=== PATIENT | female | born 1985 | race Caucasian/White ===

== ENCOUNTER 2018-02-11 10:49 | Emergency (ER) | payer OTHER, MEDICAID, SELFPAY ==
[2018-02-11 11:08] VITALS: BP 147/80; PULSE 100; RESP 12; TEMP 36.2; O2SAT 100
--- NOTE | 2018-02-11 11:09 | ED_ITS ---
HPI - Recheck/Abnormal Lab/Rx General Chief Complaint: Recheck/Abnormal Lab/Rx Stated Complaint: NEEDS MEDS Time Seen by Provider: 02/11/18 11:01 Source: patient Mode of arrival: ambulatory Limitations: no limitations History of Present Illness HPI narrative: Patient is a 32-year-old female requesting refill prescriptions of her pain medications. She has appointment with a new pain clinic in February but has run out. She was kicked out of physician practices due to not providing a urine sample. she is currently out of pain medication but has no increased or worsening pain. She has a history of rheumatoid and fibromyalgia. MD complaint: medication refill request Related Data Previous Rx's Medication Instructions Recorded fluconazole [Diflucan] 100 mg PO QDAY #1 tab 02/28/17 cyclobenzaprine 10 mg PO TIDP PRN #90 tab 04/26/17 [condoms, lubricated] 1 / UNK QDAY PRN #30 packet 05/23/17 norethin-e.estradiol triphasic 1 tab PO SEE INSTRUCTIONS #1 pac 07/08/17 [Ortho-Novum (28)] hydrochlorothiazide 25 mg PO QDAY #90 tab 08/02/17 potassium chloride 8 meq PO Q DAY #30 tab 10/28/17 carisoprodol 350 mg tablet 350 mg PO TID PRN #90 tab 01/07/18 oxycodone-acetaminophen 10 mg-325 1 tab PO Q4HP PRN #190 tab 01/13/18 mg tablet diazepam 10 mg tablet 10 mg PO TIDP PRN #90 tab 01/22/18 temazepam 30 mg capsule 60 mg PO HSP PRN #60 tab 01/22/18 Allergies Allergy/AdvReac Type Severity Reaction Status Date / Time codeine [CODEINE] Allergy Unknown Unverified 11/06/17 12:06 Sulfa (Sulfonamide Allergy Unknown Unverified 11/06/17 12:06 Antibiotics) [SULFA (SULFONAMIDE ANTIBIOTICS)] Review of Systems Review of Systems GENERAL: Denies chills,fever HEENT: Denies throat pain RESPIRATORY: Denies dyspnea, cough, wheezing CARDIOVASCULAR: Denies chest pain, palpitations GASTROINTESTINAL: Denies nausea, vomiting MUSCULOSKELETAL: Denies extremity pain, injury SKIN: No rash, no laceration, no pruritus NEUROLOGIC: Denies weakness, dizziness, headache, numbness 8 point review of systems is negative except for those stated above and HPI [facility] Medical History Fibromyalgia (Acute) Rheumatoid arthritis (Acute) Ankle pain (Inactive) Anxiety (Inactive) Depression (Inactive) Fibromyalgia (Inactive) Foot pain (Inactive) Migraine (Inactive) Osteoporosis (Inactive) Ovarian cyst (Inactive) PTSD (post-traumatic stress disorder) (Inactive) Painful menstrual periods (Inactive) Rheumatoid arthritis (Inactive) Scoliosis (Inactive) Shoulder pain (Inactive) Exam Initial Vital Signs Initial Vital Signs: Vital Signs Temperature 97.2 F L 02/11/18 11:08 Pulse Rate 100 H 02/11/18 11:08 Respiratory Rate 12 02/11/18 11:08 Blood Pressure 147/80 H 02/11/18 11:08 Pulse Oximetry 100 02/11/18 11:08 GENERAL: Well-appearing, well-nourished and in no acute distress. CARDIOVASCULAR: peripheral pulses in tact, cap refill <2 sec RESPIRATORY: No respiratory distress, speaks in full sentences without difficulty EXTREMITIES: Normal range of motion, no clubbing or edema. Neurovascularly intact NEUROLOGICAL: Cranial nerves II through XII grossly intact. Normal gait and speech. SKIN: Warm, dry, no petechiae, no rashes or lesions. Course Vital Signs - 8 hr 02/11/18 11:08 Temperature 97.2 F L Pulse Rate 100 H Respiratory Rate 12 Blood Pressure 147/80 H Pulse Oximetry 100 MDM - Recheck/Abnormal Lab/Rx MDM Narrative Medical decision making narrative: large amount of time explained the patient that I cannot refill her chronic pain medications in the emergency department. Unfortunately she may just have to wait until her pain clinic appointment. She is nontoxic she does not appear in any severe pain. Patient was ambulatory prior to discharge instructions. Discharge Plan Departure Patient Disposition: Home, Self-Care Clinical Impression: Chronic pain syndrome Discharge Date/Time: 02/11/18 11:39 Interventions: ED Discharge Assessment Last Done: 02/11/18 11:40 Instructions: DI for Chronic Pain -- Adult Prescriptions: No Action fluconazole [Diflucan] 100 MG tablet 100 mg PO QDAY Qty: 1 RF: 1 cyclobenzaprine 10 MG tablet 10 mg PO TIDP PRNQty: 90 RF: 0 [condoms, lubricated] 1 / UNK QDAY PRNQty: 30 RF: 11 norethin-e.estradiol triphasic [Ortho-Novum (28)] 1 EACH tablet 1 tab PO SEE INSTRUCTIONS Qty: 1 RF: 11 hydrochlorothiazide 25 MG tablet 25 mg PO QDAY Qty: 90 RF: 0 potassium chloride 8 MEQ tablet extended release 8 meq PO Q DAY Qty: 30 RF: 11 carisoprodol 350 mg tablet 350 mg PO TID PRN (Reason: muscle spasm) Qty: 90 RF: 0 oxycodone-acetaminophen [Endocet] 10-325 mg tablet 1 tab PO Q4HP PRN (Reason: pain) Qty: 190 RF: 0 diazepam [Valium] 10 mg tablet 10 mg PO TIDP PRN (Reason: anxiety) Qty: 90 RF: 0 temazepam 30 mg capsule 60 mg PO HSP PRN (Reason: insomnia) Qty: 60 RF: 0 Stand Alone Forms: Against Medical Advice
== END 2018-02-11 11:39 | disposition home or self-care (01) ==
PROVIDERS: Emergency Provider Emergency Medicine; PCP Family Medicine Sports Medicine
DX: G89.4 Chronic pain syndrome (principal)
CPT/HCPCS: 99282

== ENCOUNTER → 2021-04-07 16:19 | Outpatient (CLI) | payer OTHER, MEDICAID, SELFPAY | PROVIDERS: PCP Family Medicine Sports Medicine; Visit Provider Nurse Practitioner | DX: N39.0 Urinary tract infection, site not specified (principal) | CPT/HCPCS: 81002; 87077; 87086; 87186 ==

== ENCOUNTER 2022-04-05 14:54 | Emergency (ER) | payer OTHER, MEDICAID, SELFPAY ==
[2022-04-05 15:14] VITALS: BP 175/116; PULSE 111; RESP 18; TEMP 36.6; O2SAT 99; BMI 31.9
[2022-04-05] MEDS: LIDOCAINE PATCH 1 EACH ADH..PATCH TOP (17:21)
[2022-04-05] MEDS: diazePAM 5 MG TABLET PO (17:21)
[2022-04-05] MEDS: predniSONE 20 MG TABLET 60 MG PO (17:21)
--- NOTE | 2022-04-05 19:28 | ED_ITS ---
HPI - Extremity Problem <Karina Hernandez, [facility] - Last Filed: 04/05/22 19:55> General Chief complaint: Extremity Problem,Nontraumatic Stated complaint: PAIN TO THE LT. SIDE OF BODY Time Seen by Provider: 04/05/22 16:56 Source: patient Mode of arrival: Wheelchair History of Present Illness HPI Narrative: This is a 37-year-old female with history of anxiety, depression, fibromyalgia, chronic pain syndrome, opiate dependence, posttraumatic stress disorder, bilateral low back pain without sciatica and idiopathic scoliosis of lumbar region who presents to the emergency with complaint of symptoms on the left side of her body which do not seem normal to her. Patient states that when she sleeps on her left arm it falls asleep and when she moves off of it it is normal again. Patient states that she is had occasional shooting pain from her left buttock down the lateral aspect of her thigh which stops at the knee and endorses a history of degenerative disc disease and L2 and L4 herniation. She has been taking ibuprofen, states she took 800 mg prior to arrival and it has not helped too much. She is concerned about recurrence of this nerve pain, denies any incontinence, denies any fever, denies any weakness or difficulty walking. He was concerned about this pain because she was not sure why it did not go all the way down her leg. Related Data Previous Rx's Medication Instructions Recorded fluconazole 100 mg tablet 100 mg PO QDAY #1 tab 02/28/17 (Diflucan) cyclobenzaprine 10 mg tablet 10 mg PO TIDP PRN #90 tabs 04/26/17 [condoms, lubricated] 1 / UNK QDAY PRN #30 packets 05/23/17 norethindrone-e.estradiol 1 tab PO SEE INSTRUCTIONS ##1 07/08/17 triphasic 0.5 mg/0.75 mg/1 mg-35 mcg tablet (Ortho-Novum (28)) hydrochlorothiazide 25 mg tablet 25 mg PO QDAY #90 tabs 08/02/17 potassium chloride 8 mEq 8 meq PO Q DAY #30 tabs 10/28/17 tablet,extended release carisoprodol 350 mg tablet 350 mg PO TID PRN muscle spasm #90 01/07/18 tabs oxycodone-acetaminophen 10 mg-325 1 tab PO Q4HP PRN pain #190 tabs 01/13/18 mg tablet (Endocet) diazepam 10 mg tablet (Valium) 10 mg PO TIDP PRN anxiety #90 tabs 01/22/18 temazepam 30 mg capsule 60 mg PO HSP PRN insomnia #60 tabs 01/22/18 phenazopyridine 100 mg tablet 200 mg PO TID PRN pain 6 doses #6 04/07/21 (Pyridium) tabs lidocaine 5 % topical patch 1 patch topical DAILY PRN pain #15 04/05/22 (Lidoderm) ea lidocaine 5 % topical patch 1 patch topical DAILY PRN pain #15 04/05/22 (Lidoderm) ea methocarbamol 500 mg tablet 500 mg PO TID PRN muscle spasm #20 04/05/22 tabs methocarbamol 750 mg tablet 750 mg PO TID PRN muscle spasm #20 04/05/22 tabs prednisone 20 mg tablet 20 mg PO DAILY 4 days #8 tabs 04/05/22 prednisone 20 mg tablet 40 mg PO DAILY 4 days #8 tabs 04/05/22 Allergies Allergy/AdvReac Type Severity Reaction Status Date / Time codeine [CODEINE] Allergy Unknown Verified 04/05/22 15:19 Sulfa (Sulfonamide Allergy Unknown Verified 04/05/22 15:19 Antibiotics) [SULFA (SULFONAMIDE ANTIBIOTICS)] Review of Systems <SHANT Castro - Last Filed: 04/05/22 19:55> Review of Systems Narrative: Review of systems is negative for acute abnormalities unless otherwise noted in HPI Patient History <SHANT Castro - Last Filed: 04/05/22 19:55> Medical History Ankle pain Anxiety Depression Fibromyalgia Fibromyalgia Foot pain Migraine Osteoporosis Ovarian cyst Painful menstrual periods PTSD (post-traumatic stress disorder) Rheumatoid arthritis Rheumatoid arthritis Scoliosis Shoulder pain Social History Smoking Status: Current every day smoker Smoking Status: Current every day smoker alcohol intake frequency: a few times a month Substance Use Type: marijuana Exam <SHANT Castro - Last Filed: 04/05/22 19:55> Narrative Exam Narrative: Reviewed vitals signs and nursing notes. General: cooperative, comfortable, in no acute distress, well groomed HEENT: symmetrical facial expressions, moist mucous membranes Cardiovascular: regular rate and rhythm, no peripheral edema, warm extremities Respiratory: normal effort, able to speak in complete sentences, without wheezing, stridor, or abnormal breath sounds. No retractions or tachypnea. GI: abdomen soft, nontender to palpation, nondistended, without masses, rebound tenderness or exquisite tenderness with exam. MSK: moves all extremities, neurovascularly intact, no weakness, normal tone, leg lift elicit symptoms of pain in her lumbar spine, ambulatory with steady gait, no weakness when compared with right side, neurovascularly intact without any sensation changes at this time. Skin: brisk capillary refill, without pallor or erythema Neuro: normal speech and cognition, A&O x3, ambulatory, clear speech Psych: mental status is grossly normal, congruent mood, normal affect, pleasant and cooperative Initial Vital Signs Initial Vital Signs: Vital Signs Temperature 97.9 F 04/05/22 15:14 Pulse Rate 111 H 04/05/22 15:14 Respiratory Rate 18 04/05/22 15:14 Blood Pressure 175/116 H 04/05/22 15:14 Pulse Oximetry 99 04/05/22 15:14 Oxygen Delivery Method 04/05/22 15:14 <Julio Cesar Mejia MD - Last Filed: 04/06/22 07:08> Initial Vital Signs Initial Vital Signs: Vital Signs Temperature 97.9 F 04/05/22 15:14 Pulse Rate 111 H 04/05/22 15:14 Respiratory Rate 18 04/05/22 15:14 Blood Pressure 175/116 H 04/05/22 15:14 Pulse Oximetry 99 04/05/22 15:14 Oxygen Delivery Method 04/05/22 15:14 Course <SHANT Castro - Last Filed: 04/05/22 19:55> Orders Ordered: Discontinued Medications Diazepam (Diazepam 5 Mg Tablet) 5 mg PO NOW ONE Stop: 04/05/22 17:16 Last Admin: 04/05/22 17:21 Dose: 5 mg Documented By: VISH Diazepam (Diazepam 5 Mg Tablet) 5 mg PO NOW ONE Stop: 04/05/22 17:18 Last Admin: 04/05/22 17:21 Dose: Not Given Documented By: AMU Lidocaine (Lidocaine Patch 1 Each Adh..Patch) 1 each TOP NOW ONE Stop: 04/05/22 17:16 Last Admin: 04/05/22 17:21 Dose: 1 each Documented By: VISH Prednisone (Prednisone 20 Mg Tablet) 60 mg PO NOW ONE Stop: 04/05/22 17:16 Last Admin: 04/05/22 17:21 Dose: 60 mg Documented By: VISH Vital Signs Vital signs: Vital Signs - 8 hr 04/05/22 15:14 Temperature 97.9 F Pulse Rate 111 H Respiratory Rate 18 Blood Pressure 175/116 H Pulse Oximetry 99 Oxygen Delivery Method Room Air <Julio Cesar Mejia MD - Last Filed: 04/06/22 07:08> Orders Ordered: Discontinued Medications Diazepam (Diazepam 5 Mg Tablet) 5 mg PO NOW ONE Stop: 04/05/22 17:16 Last Admin: 04/05/22 17:21 Dose: 5 mg Documented By: VISH Diazepam (Diazepam 5 Mg Tablet) 5 mg PO NOW ONE Stop: 04/05/22 17:18 Last Admin: 04/05/22 17:21 Dose: Not Given Documented By: VISH Lidocaine (Lidocaine Patch 1 Each Adh..Patch) 1 each TOP NOW ONE Stop: 04/05/22 17:16 Last Admin: 04/05/22 17:21 Dose: 1 each Documented By: VISH Prednisone (Prednisone 20 Mg Tablet) 60 mg PO NOW ONE Stop: 04/05/22 17:16 Last Admin: 04/05/22 17:21 Dose: 60 mg Documented By: VISH Vital Signs Vital signs: Vital Signs - 8 hr 04/05/22 15:14 Temperature 97.9 F Pulse Rate 111 H Respiratory Rate 18 Blood Pressure 175/116 H Pulse Oximetry 99 Oxygen Delivery Method Room Air MDM - Extremity (Nontraumatic) <SHANT Castro - Last Filed: 04/05/22 19:55> MDM Narrative Medical decision making narrative: Patient presents with history of scoliosis, degenerative disc disease, herniated desk and low back pain without sciatica who presents to the emergency department for shooting pain which came from her left buttock and went down to her left knee intermittently recently. She is without trauma, and is afebrile. Denies any injuries, states that she has been on her feet for the last few days and maybe her low back has been sore. She denies any weakness. Given history and exam, suspect likely musculoskeletal etiology, they are nontoxic appearing with no overt risk factors for epidural hematoma or abscess. No overt evidence of critical cord compression and has a nonfocal near exam. Neurovascularly intact distally, no evidence of infection, peritoneal signs, hypertensive crisis, or abdominal pain with low suspicion for AAA. No weakness, incontinence, neurovascular or sensation changes, no concerning findings for caudal equina syndrome, lumbar fracture, without paresthesia, neuropathic pain, meningeal signs and fever. This could be a herniated disk, paraspinal or other muscle strain, ligamental injury, arthritic, nephrolithiasis/pyelonephritis, epidural abscess, chronic pain, and other diagnosis? considered less likely. Discharge Plan Departure Patient Disposition: Home Clinical Impression: Acute low back pain with sciatica Qualifiers: Back pain laterality: left Sciatica laterality: sciatica of left side Qualified Code(s): M54.42 - Lumbago with sciatica, left side Instructions: DI for Back Pain With Sciatica, DI for Muscle Spasm Activity Restrictions/Additional Instructions: *You have been diagnosed with sciatica coming from your previous low back injury with your degenerative discs. Please take ibuprofen 800 mg every 8 hours with food and water, you may also take Tylenol 650 mg every 6 hours for pain. Please use the prednisone prescription for the next 5 days which will help reduce inflammation of the nerve root, use muscle relaxers every 8 hours as needed for muscle spasm, lidocaine patches as you need them over the left side of your low back and try to establish care with a primary care provider. I hope that you start feeling better soon, thank you for trusting us with your care. If you develop any weakness of your legs, incontinence, or any dangerous new problems, please come back to the emergency department for evaluation. *What to do: *Please continue to take your regular medications as directed. [x ] New medication prescriptions sent to your pharmacy: [[facility]am[facility]incortes ] [ ] New medication written as a paper prescription [ ] No new medications given *Please follow up with your primary care provider in 2-3 days, call for an appointment. Let them know you were seen in the Emergency Department and that we asked that you be seen for follow-up. We will electronically transmit a record of today's note if your PCP is in our system *If you do not have a primary care provider please contact [phone] to establish care with one of the [facility] primary care providers. *Return to Emergency Department if you should have any new, worsening, or co ncerning symptoms, such as [fever greater than 101F, chills, worsening pain, persistent vomiting or other bothersome symptoms]. Prescriptions: New methocarbamol 500 mg tablet 500 mg PO TID PRN (Reason: muscle spasm) Qty: 20 0RF lidocaine [Lidoderm] 5 % adhesive patch,medicated 1 patch topical DAILY PRN (Reason: pain) Qty: 15 0RF Rx Instructions: leave on most painful area for up to 12 hrs prednisone 20 mg tablet 20 mg PO DAILY 4 Days Qty: 8 0RF prednisone 20 mg tablet 40 mg PO DAILY 4 Days Qty: 8 0RF Rx Instructions: Start tomorrow, take with food and water methocarbamol 750 mg tablet 750 mg PO TID PRN (Reason: muscle spasm) Qty: 20 0RF lidocaine [Lidoderm] 5 % adhesive patch,medicated 1 patch topical DAILY PRN (Reason: pain) Qty: 15 0RF Rx Instructions: leave on most painful area for up to 12 hrs Continued phenazopyridine [Pyridium] 100 mg tablet 200 mg PO TID PRN (Reason: pain) Qty: 6 0RF fluconazole [Diflucan] 100 MG tablet 100 mg PO QDAY Qty: 1 1RF cyclobenzaprine 10 MG tablet 10 mg PO TIDP PRNQty: 90 0RF [condoms, lubricated] 1 / UNK QDAY PRNQty: 30 11RF norethin-e.estradiol triphasic [Ortho-Novum (28)] 1 EACH tablet 1 tab PO SEE INSTRUCTIONS Qty: 1 11RF hydrochlorothiazide 25 MG tablet 25 mg PO QDAY Qty: 90 0RF potassium chloride 8 MEQ tablet extended release 8 meq PO Q DAY Qty: 30 11RF carisoprodol 350 mg tablet 350 mg PO TID PRN (Reason: muscle spasm) Qty: 90 0RF oxycodone-acetaminophen [Endocet] 10-325 mg tablet 1 tab PO Q4HP PRN (Reason: pain) Qty: 190 0RF Rx Instructions: Take one tablet by mouth up to every four hours as needed for pain. EXEMPT diazepam [Valium] 10 mg tablet 10 mg PO TIDP PRN (Reason: anxiety) Qty: 90 0RF temazepam 30 mg capsule 60 mg PO HSP PRN (Reason: insomnia) Qty: 60 0RF Visit Report Forms: Patient Portal/API <Julio Cesar Mejia MD - Last Filed: 04/06/22 07:08> Cosign ED Attending Cosignature Attestation: I was immediately available in the department for consultation. ?This documentation has been reviewed and I agree with assessment and plan. Supervised by Julio Cesar Mejia MD
== END 2022-04-05 17:44 | disposition home or self-care (01) ==
PROVIDERS: Emergency Provider Nurse Practitioner Critical Care Medicine
DX: M54.42 Lumbago with sciatica, left side (principal)
CPT/HCPCS: 99283

== ENCOUNTER → 2022-11-12 09:46 | Outpatient (CLI) | payer OTHER, MEDICAID, SELFPAY ==
--- NOTE | 2022-11-12 09:52 | DI.RAD.S_ITS ---
PROCEDURE: XR ANKLE LT MIN 3V INDICATIONS: Ankle pain TECHNIQUE: 3 views of the ankle were acquired. COMPARISON: None. FINDINGS: Bones: No fractures or dislocations. Ankle mortise is normally aligned. No suspicious bony lesions. Soft tissues: Moderate tibiotalar joint effusion. Achilles tendon appears normal. IMPRESSION: Moderate tibiotalar joint effusion. No displaced fracture. If this patient cannot bear weight, consider CT. If pain persists following conservative management, consider repeat x-rays in 10-14 days, or cross-sectional imaging. Dictated by: Pankaj Fisher M.D. on 11/12/2022 at 12:17 Approved by: Pankaj Fisher M.D. on 11/12/2022 at 12:18
--- NOTE | 2022-11-12 09:52 | DI.RAD.S_ITS ---
PROCEDURE: XR LUMBAR SPINE 2-3V INDICATIONS: Pain TECHNIQUE: 3 views of the lumbar spine were acquired. COMPARISON: None. FINDINGS: Bones: 5 [id number] vertebrae are present. Convex left scoliosis, Aguila angle of 23?. Moderate facet arthrosis L2 through S1. [id number] disc height loss at all levels. Opposing endplate sclerosis at L4-5. Soft tissues: Overlying bowel gas pattern is normal. No suspicious soft tissue calcifications. IMPRESSION: Convex left scoliosis, Aguila angle of 23?. Mild to moderate disc height loss and facet arthrosis at all levels. Dictated by: Pankaj Fisher M.D. on 11/12/2022 at 12:15 Approved by: Pankaj Fisher M.D. on 11/12/2022 at 12:17
[2022-11-12 10:43] LABS: Add Manual Diff / Slide Review NO; Basophils Absolute Auto 0 /uL (0-100); Basophils Percent Auto 0.4 % (0-2); Eosinophils Absolute Auto 200 /uL (0-450); Eosinophils Percent Auto 2.5 % (2-4); Hematocrit 40.6 % (36-46); Hemoglobin 13.9 g/dL (12.0-16.0); Lymphocytes Absolute Auto 1900 /uL (1100-4500); Lymphocytes Percent Auto 21.3 % (25-40); Mean Corpuscular HGB Conc 34.3 % (30-36); Mean Corpuscular Hemoglobin 34.8 PG (26-34); Mean Corpuscular Volume 101.5 fL (80-100); Monocytes Absolute Auto 600 /uL (0-900); Neutrophils Absolute Auto 6100 /uL (1500-7000); Neutrophils Percent Auto 68.8 % (50-75); Platelet Count 203 X10^3/uL (150-400); Red Cell Distribution Width 15.8 % (11.6-14.8); White Blood Cell Count 8.9 X10^3/uL (4.5-11.0)
[2022-11-12 10:57] LABS: Alanine Aminotransferase 27 IU/L (<35); Albumin Globulin Ratio 1.1 (1.0-2.8); Alkaline Phosphatase 65 U/L (38-126); Aspartate Aminotransferase 36 IU/L (14-36); BUN Creatinine Ratio 9.5 (6-22); Bilirubin Total 0.6 mg/dL (0.2-1.3); Blood Urea Nitrogen 7 mg/dL (7-17); Calcium 8.9 mg/dL (8.4-10.2); Carbon Dioxide 27 mmol/L (22-32); Chloride 105 mmol/L (98-107); Cholesterol 196 mg/dL (140-199); Estimated Glomerular Filt Rate > 60 mL/min (>60); Globulin 3.6 g/dL (1.7-4.1); Glucose 191 mg/dL (70-100); HDL Cholesterol 38 mg/dL (40-60); HEMOLYSIS < 15 (0-50); LDL Cholesterol Calculated 135 mg/dL (<100); Potassium 3.9 mmol/L (3.4-5.1); Sodium 140 mmol/L (137-145); Total Protein 7.6 g/dL (6.3-8.2); Triglycerides 114 mg/dL (35-150); VLDL Cholesterol Calculated 23 mg/dL (2-30)
[2022-11-12 11:30] LABS: TSH w/ Reflex to FT4 2.97 uIU/mL (0.47-4.68)
[2022-11-12 17:23] LABS: Hep C Virus Ab w/Reflex Quant NEGATIVE s/c (NEGATIVE)
== END ==
PROVIDERS: Referring Provider Nurse Practitioner Family; Visit Provider Nurse Practitioner Family
DX: E87.5 Hyperkalemia (principal); R00.0 Tachycardia, unspecified; F41.9 Anxiety disorder, unspecified; M54.50 Low back pain, unspecified; M54.31 Sciatica, right side; M54.32 Sciatica, left side; Z11.59 Encounter for screening for other viral diseases; M25.572 Pain in left ankle and joints of left foot; M41.86 Other forms of scoliosis, lumbar region; M47.816 Spondylosis without myelopathy or radiculopathy, lumbar region; M25.472 Effusion, left ankle
CPT/HCPCS: 36415; 72100; 73610; 80053; 80061; 84443; 85025; 86803

== ENCOUNTER → 2024-04-16 10:57 | Outpatient (CLI) | payer OTHER, MEDICAID, SELFPAY | LOC: LAB 10:58 | PROVIDERS: Visit Provider Physician Assistant | DX: R30.0 Dysuria (principal) | CPT/HCPCS: 87077; 87086 ==

== ENCOUNTER 2025-07-10 16:30 | Inpatient (IN) | payer OTHER, SELFPAY ==
[2025-07-10] VITALS (85 sets, daily range): BP systolic 84–199; BP diastolic 51–148; PULSE 63–87; RESP 16–43; TEMP 35–36.6; O2SAT 92–99; BMI 39.1
--- NOTE | 2025-07-10 16:36 | DI.RAD.S_ITS ---
PROCEDURE: XR CHEST 1V INDICATIONS: intubation TECHNIQUE: One view of the chest was acquired. COMPARISON: None. FINDINGS: Surgical changes and devices: Endotracheal tube with tip in the mid intrathoracic trachea 2.4 cm above the senthil. Subdiaphragmatic enteric tube with tip overlying the gastric body. Lungs and pleura: Low lung volumes with corresponding bibasilar atelectasis.. No pleural effusions or pneumothorax. Mediastinum: Mediastinal contours appear normal. Heart size is normal. Bones and chest wall: No suspicious bony lesions. Overlying soft tissues appear unremarkable. IMPRESSION: Interval intubation and placement of a subdiaphragmatic enteric tube in appropriate position. Low lung volumes with bibasilar atelectasis. Dictated by: Jarad Padilla M.D. on 07/10/2025 at 16:10 Approved by: Jarad Padilla M.D. on 07/10/2025 at 16:11
[2025-07-10 16:43] LABS: Allen Test for ABG Passed? Positive; Blood Gas Collection Site Right Radial; Blood Gas Mode Assist Cont Ventilat; Delivery System Adult Ventilator; HCO3 ABG 21 mmol/L (23-27); Oxygen Saturation ABG 98 % (95-100); PCO2 ABG 38.2 mmHg (35-45); PEEP 5; PO2 ABG 108 mmHg (80-100); TCO2 ABG 21 mmol/L (23-27)
[2025-07-10 16:52] LABS: INR 1.0 (0.9-1.3); Prothrombin Time 11.4 SECONDS (9.4-12.5)
[2025-07-10 16:57] LABS: Acetaminophen < 10 ug/mL (10-30); Alanine Aminotransferase 16 IU/L (<35); Albumin 4.5 g/dL (3.5-5.0); Albumin Globulin Ratio 1.3 (1.0-2.8); Alkaline Phosphatase 77 U/L (38-126); Blood Urea Nitrogen 8 mg/dL (7-17); Calcium 8.8 mg/dL (8.4-10.2); Carbon Dioxide 25 mmol/L (22-32); Chloride 106 mmol/L (98-107); Estimated Glomerular Filt Rate > 60 mL/min (>60); Globulin 3.4 g/dL (1.7-4.1); Glucose 115 mg/dL (70-99); HEMOLYSIS < 15 (0-50); Lactate (Lactic Acid) 2.4 mmol/L (0.7-2.1); Lipase 66 U/L (23-300); Potassium 4.2 mmol/L (3.4-5.1); Salicylate < 1.0 mg/dL (<20); Sodium 143 mmol/L (137-145); Total Protein 7.9 g/dL (6.3-8.2)
[2025-07-10 17:04] LABS: Ethanol (ETOH) 377 mg/dL (<10)
--- NOTE | 2025-07-10 17:06 | EKG_ITS ---
[address] [address] Test Date: 2025-07-10 Pat Name: Jenny Lui Department: Room: 227 Gender: Female Dietary Aide Cook: : [id number] Requested By: Order Number: [id number] Reading MD: Santosh Navarrete MD Measurements Intervals [place] Rate: 87 P: 28 SC: 146 QRS: 30 QRSD: 94 T: 23 QT: 392 QTc: 471 Interpretive Statements Normal sinus rhythm Septal infarct , age undetermined Electronically Signed On 07-11-2025 8:09:13 PST by Santosh Navarrete MD
[2025-07-10 17:07] LABS: Add Manual Diff / Slide Review NO; Hematocrit 41.5 % (36-46); Hemoglobin 14.5 g/dL (12.0-16.0); Lymphocytes Absolute Auto 2600 /uL (1100-4500); Mean Corpuscular HGB Conc 34.9 % (30-36); Mean Corpuscular Hemoglobin 34.4 PG (26-34); Mean Corpuscular Volume 98.8 fL (80-100); Platelet Count 225 X10^3/uL (150-400)
[2025-07-10] MEDS: SODIUM CHLORIDE 0.9% 1,000 ML 150 ML IV (17:07)
--- NOTE | 2025-07-10 17:08 | DI.CT.S_ITS ---
PROCEDURE: CT HEAD/BRAIN WO CON INDICATIONS: found down TECHNIQUE: Noncontrast 4.5 mm thick angled axial sections acquired from the foramen magnum to the vertex, with coronal and sagittal reformats. For radiation dose reduction, the following was used: automated exposure control, adjustment of mA and/or kV according to patient size. COMPARISON: None. FINDINGS: Image quality: Diagnostic. CSF spaces: Basal cisterns are patent. No extra-axial fluid collections. Ventricles are normal in size and shape. Brain: No midline shift. No intracranial mass effect or hemorrhage. Sibley- white matter interface is normal. Skull and face: Calvarium and visualized facial bones are intact, without suspicious lesions. Sinuses: Visualized sinuses and mastoids are clear. Opacification of the nasopharynx and partially visualized superior oropharynx by fluid/debris, IMPRESSION: No acute intracranial pathology. Opacification of the partially visualized nasopharynx, which may be secondary to intubation versus aspiration. Dictated by: Jarad Padilla M.D. on 07/10/2025 at 16:29 Approved by: Jarad Padilla M.D. on 07/10/2025 at 16:30
[2025-07-10 17:09] LABS: Troponin I < 0.012 ng/mL (0.01-0.034)
--- NOTE | 2025-07-10 17:32 | PC.NURSE ---
Patient taken to CT scan at this time with MANUEL Lopez RN [facility], and Quyen De La Cruz RN. ON the vitals monitor while intubated in CT.
--- NOTE | 2025-07-10 17:33 | ED_ITS ---
HPI - Overdose <Raquel Christopher DO - Last Filed: 07/11/25 07:44> General Chief Complaint: Unresponsive Stated Complaint: OD/Intubated Time Seen by Provider: 07/10/25 16:34 Source: EMS Mode of arrival: EMS History of Present Illness HPI Narrative: Patient is a 40-year-old female presenting today with EMS intubated has a presumed overdose. She was found unresponsive given nasal Narcan and IV Narcan with minimal response. She had an a variety of substances to overdose on. EMS reports that they have been called on her before however we do not have record of her here. Given ketamine and rocuronium for sedation. mayo, mom [phone] I did speak with the mother who reports that she does have substance use problem unclear of any previous overdoses Related Data Home Medications ?Medication ?Instructions ?Recorded ?Confirmed Unobtainable 07/10/25 07/10/25 Allergies Allergy/AdvReac Type Severity Reaction Status Date / Time No Known Drug Allergies Allergy Verified 07/10/25 16:35 Patient History <Raquel Christopher DO - Last Filed: 07/11/25 07:44> Social History Smoking Status: Smoker, status unknown alcohol intake: current Smoking Status: Smoker, status unknown Exam <Raquel Christopher DO - Last Filed: 07/11/25 07:44> Initial Vital Signs Initial Vital Signs: Vital Signs Pulse Rate 83 07/10/25 16:33 Respiratory Rate 20 07/10/25 16:33 Pulse Oximetry 99 07/10/25 16:33 Oxygen Delivery Method Mechanical Ventilation 07/10/25 16:33 GENERAL: Not responsive intubated HEENT: Head atraumatic,EOMI, pupils reactive, face symmetric, moist mucous membranes CARDIOVASCULAR: Regular rate and rhythm without murmurs, rubs or gallops. RESPIRATORY: Breath sounds equal bilaterally, no wheezes rales or rhonchi. ABDOMEN: Soft, nontender. Normoactive bowel sounds all 4 quadrants. No guarding or rebound. EXTREMITIES: Normal range of motion, no clubbing or edema. Neurovascularly intact NEUROLOGICAL: Sedated SKIN: Warm, dry, no laceration, no petechiae, no rashes or lesions. <Jason Martini MD - Last Filed: 07/11/25 03:27> Initial Vital Signs Initial Vital Signs: Vital Signs Pulse Rate 83 07/10/25 16:33 Respiratory Rate 20 07/10/25 16:33 Pulse Oximetry 99 07/10/25 16:33 Oxygen Delivery Method Mechanical Ventilation 07/10/25 16:33 Course <Raquel Christopher DO - Last Filed: 07/11/25 07:44> Orders Ordered: Albuterol (Albuterol 2.5 Mg/3 Ml Neb (Adult)) 2.5 mg INH [id number] PRN PRN Reason: Dyspnea Chlorhexidine Gluconate (Chlorhexidine Gluconate 15 Ml Cup) 15 ml PO Q6HR JOYCE Last Admin: 07/11/25 05:56 Dose: 15 ml Documented By: Admin: 07/11/25 00:50 Dose: 15 ml Documented By: Admin: 07/10/25 19:54 Dose: Not Given Documented By: AB Famotidine (Famotidine 20 Mg/2 Ml Vial) 20 mg IV BID JOYCE Propofol (Diprivan) 1,000 mg in 100 mls @ 33 mls/hr IV TITRATE JOYCE; Protocol Last Admin: 07/11/25 05:15 Dose: 30 mcg/kg/min, 19.8 mls/hr Documented By: Titration: 07/11/25 05:15 Dose: Infused Documented By: Titration: 07/11/25 05:00 Dose: 30 mcg/kg/min, 19.8 mls/hr Documented By: Titration: 07/11/25 03:15 Dose: 25 mcg/kg/min, 16.5 mls/hr Documented By: Titration: 07/11/25 02:59 Dose: 30 mcg/kg/min, 19.8 mls/hr Documented By: Titration: 07/11/25 02:27 Dose: 20 mcg/kg/min, 13.2 mls/hr Documented By: Titration: 07/11/25 02:15 Dose: 20 mcg/kg/min, 13.2 mls/hr Documented By: Titration: 07/11/25 02:03 Dose: 10 mcg/kg/min, 6.6 mls/hr Documented By: Titration: 07/11/25 01:43 Dose: 20 mcg/kg/min, 13.2 mls/hr Documented By: Titration: 07/10/25 23:56 Dose: 0 mcg/kg/min, 0 mls/hr Documented By: Admin: 07/10/25 23:38 Dose: 20 mcg/kg/min, 13.2 mls/hr Documented By: Titration: 07/10/25 22:24 Dose: Infused Documented By: Titration: 07/10/25 22:23 Dose: 40 mcg/kg/min, 26.4 mls/hr Documented By: Titration: 07/10/25 20:39 Dose: 40 mcg/kg/min, 26.4 mls/hr Documented By: Titration: 07/10/25 19:30 Dose: 40 mcg/kg/min, 26.4 mls/hr Documented By: Titration: 07/10/25 19:28 Dose: 50 mcg/kg/min, 33 mls/hr Documented By: Titration: 07/10/25 17:54 Dose: 60 mcg/kg/min, 39.6 mls/hr Documented By: Titration: 07/10/25 17:45 Dose: 50 mcg/kg/min, 33 mls/hr Documented By: Titration: 07/10/25 17:36 Dose: 40 mcg/kg/min, 26.4 mls/hr Documented By: Titration: 07/10/25 17:20 Dose: 20 mcg/kg/min, 13.2 mls/hr Documented By: Titration: 07/10/25 17:02 Dose: 10 mcg/kg/min, 6.6 mls/hr Documented By: KEComfort Admin: 07/10/25 16:54 Dose: 5 mcg/kg/min, 3.3 mls/hr Documented By: IVY Fentanyl 1,000 mcg/ Dextrose 250 mls @ 27.5 mls/hr IV TITRATE PRN; Protocol PRN Reason: Anesthesia Last Titration: 07/11/25 03:36 Dose: 0.75 mcg/kg/hr, 20.625 mls/hr Documented By: Titration: 07/11/25 02:52 Dose: 1 mcg/kg/hr, 27.5 mls/hr Documented By: Admin: 07/11/25 01:59 Dose: 0.5 mcg/kg/hr, 13.75 mls/hr Documented By: Titration: 07/11/25 01:59 Dose: Infused Documented By: Admin: 07/11/25 01:44 Dose: 0.5 mcg/kg/hr, 13.75 mls/hr Documented By: Titration: 07/10/25 23:30 Dose: Infused Documented By: Titration: 07/10/25 22:25 Dose: 2 mcg/kg/hr, 55 mls/hr Documented By: Titration: 07/10/25 19:29 Dose: 2 mcg/kg/hr, 55 mls/hr Documented By: Titration: 07/10/25 19:12 Dose: 3 mcg/kg/hr, 82.5 mls/hr Documented By: Titration: 07/10/25 18:51 Dose: 2 mcg/kg/hr, 55 mls/hr Documented By: Admin: 07/10/25 18:44 Dose: 1 mcg/kg/hr, 27.5 mls/hr Documented By: IVY dexmedeTOMIDine in 0.9 % NaCL (Precedex) 400 mcg in 100 mls @ 5.5 mls/hr IV TITRATE JOYCE; Protocol Last Titration: 07/10/25 23:25 Dose: 0 mcg/kg/hr, 0 mls/hr Documented By: Admin: 07/10/25 19:29 Dose: 0.2 mcg/kg/hr, 5.5 mls/hr Documented By: IVY Sodium Chloride (Normal Saline 0.9%) 1,000 mls @ 100 mls/hr IV CONT JOYCE Last Admin: 07/11/25 03:47 Dose: 100 mls/hr Documented By: Infusion: 07/11/25 03:47 Dose: Infused Documented By: Admin: 07/10/25 23:44 Dose: 100 mls/hr Documented By: RUSS Naloxone HCl (Naloxone 0.4 Mg/Ml Vial) 0.2 mg IV Q2MIN PRN PRN Reason: Opiate Reversal Discontinued Medications Chlorhexidine Gluconate (Chlorhexidine Gluconate 15 Ml Cup) 15 ml PO Q6HR JOYCE Sodium Chloride (Normal Saline 0.9%) 1,000 mls @ 150 mls/hr IV CONT JOYCE Last Admin: 07/10/25 17:07 Dose: 150 mls/hr Documented By: IVY Sodium Chloride (Normal Saline 0.9%) 1,000 mls @ 1,000 mls/hr IV BOLUS ONE Stop: 07/10/25 19:12 Last Infusion: 07/10/25 19:13 Dose: Infused Documented By: Admin: 07/10/25 18:14 Dose: 1,000 mls/hr Documented By: IVY Propofol (Propofol 200 Mg/20 Ml Vial) 100 mg IV NOW ONE Stop: 07/10/25 17:07 Last Admin: 07/10/25 17:06 Dose: 100 mg Documented By: IVY Vital Signs Vital signs: Vital Signs - 8 hr 07/10/25 19:30 07/10/25 19:30 07/10/25 19:35 Temperature 97.0 F L 97.2 F L Pulse Rate 83 81 Respiratory Rate 20 20 Blood Pressure 121/74 Pulse Oximetry 94 94 Oxygen Delivery Method 07/10/25 19:35 07/10/25 19:40 07/10/25 19:40 Temperature 97.2 F L Pulse Rate 80 Respiratory Rate 20 Blood Pressure 123/75 119/73 Pulse Oximetry 95 Oxygen Delivery Method 07/10/25 19:45 07/10/25 19:45 07/10/25 19:50 Temperature 97.3 F L 97.3 F L Pulse Rate 80 80 Respiratory Rate 20 20 Blood Pressure 118/72 Pulse Oximetry 95 95 Oxygen Delivery Method Mechanical Ventilation 07/10/25 19:50 07/10/25 19:55 07/10/25 19:55 Temperature 97.3 F L Pulse Rate 80 Respiratory Rate 20 Blood Pressure 119/75 118/76 Pulse Oximetry 95 Oxygen Delivery Method 07/10/25 20:00 07/10/25 20:00 07/10/25 20:05 Temperature 97.3 F L Pulse Rate 80 Respiratory Rate 20 Blood Pressure 117/74 118/74 Pulse Oximetry 95 Oxygen Delivery Method 07/10/25 20:05 07/10/25 20:10 07/10/25 20:10 Temperature 97.3 F L 97.3 F L Pulse Rate 80 80 Respiratory Rate 20 20 Blood Pressure 118/72 Pulse Oximetry 95 95 Oxygen Delivery Method 07/10/25 20:15 07/10/25 20:15 07/10/25 20:20 Temperature 97.3 F L 97.3 F L Pulse Rate 80 80 Respiratory Rate 20 20 Blood Pressure 118/73 Pulse Oximetry 95 95 Oxygen Delivery Method 07/10/25 20:20 07/10/25 20:25 07/10/25 20:25 Temperature 97.3 F L Pulse Rate 80 Respiratory Rate 20 Blood Pressure 118/73 117/76 Pulse Oximetry 95 Oxygen Delivery Method 07/10/25 20:30 07/10/25 20:30 07/10/25 20:35 Temperature 97.3 F L 97.3 F L Pulse Rate 80 81 Respiratory Rate 20 20 Blood Pressure 118/73 Pulse Oximetry 94 95 Oxygen Delivery Method Mechanical Ventilation 07/10/25 20:35 07/10/25 20:40 07/10/25 20:40 Temperature 97.3 F L Pulse Rate 80 Respiratory Rate 20 Blood Pressure 120/74 120/77 Pulse Oximetry 95 Oxygen Delivery Method 07/10/25 20:45 07/10/25 20:45 07/10/25 20:50 Temperature 97.3 F L 97.3 F L Pulse Rate 81 80 Respiratory Rate 20 20 Blood Pressure 116/73 Pulse Oximetry 95 95 Oxygen Delivery Method 07/10/25 20:50 07/10/25 20:55 07/10/25 20:55 Temperature 97.3 F L Pulse Rate 80 Respiratory Rate 20 Blood Pressure 118/75 119/72 Pulse Oximetry 95 Oxygen Delivery Method 07/10/25 21:00 07/10/25 21:00 07/10/25 21:05 Temperature 97.3 F L 97.3 F L Pulse Rate 81 80 Respiratory Rate 20 20 Blood Pressure 119/73 Pulse Oximetry 95 95 Oxygen Delivery Method 07/10/25 21:05 07/10/25 21:10 07/10/25 21:10 Temperature 97.3 F L Pulse Rate 80 Respiratory Rate 20 Blood Pressure 118/74 116/74 Pulse Oximetry 95 Oxygen Delivery Method 07/10/25 21:15 07/10/25 21:15 07/10/25 21:20 Temperature 97.3 F L 97.3 F L Pulse Rate 80 80 Respiratory Rate 20 20 Blood Pressure 115/74 Pulse Oximetry 95 95 Oxygen Delivery Method 07/10/25 21:20 07/10/25 21:25 07/10/25 21:25 Temperature 97.3 F L Pulse Rate 80 Respiratory Rate 20 Blood Pressure 115/73 115/70 Pulse Oximetry 95 Oxygen Delivery Method 07/10/25 21:30 07/10/25 21:30 07/10/25 21:35 Temperature 97.3 F L 97.3 F L Pulse Rate 80 79 Respiratory Rate 20 20 Blood Pressure 114/70 Pulse Oximetry 95 95 Oxygen Delivery Method 07/10/25 21:35 07/10/25 21:40 07/10/25 21:40 Temperature 97.3 F L Pulse Rate 78 Respiratory Rate 20 Blood Pressure 111/70 110/68 Pulse Oximetry 95 Oxygen Delivery Method 07/10/25 21:45 07/10/25 21:45 07/10/25 21:50 Temperature 97.3 F L Pulse Rate 78 Respiratory Rate 20 Blood Pressure 112/71 108/69 Pulse Oximetry 95 Oxygen Delivery Method 07/10/25 21:50 Temperature 97.5 F L Pulse Rate 77 Respiratory Rate 20 Blood Pressure Pulse Oximetry 95 Oxygen Delivery Method <Jason Martini MD - Last Filed: 07/11/25 03:27> Orders Ordered: Albuterol (Albuterol 2.5 Mg/3 Ml Neb (Adult)) 2.5 mg INH [id number] PRN PRN Reason: Dyspnea Chlorhexidine Gluconate (Chlorhexidine Gluconate 15 Ml Cup) 15 ml PO Q6HR JOYCE Last Admin: 07/11/25 05:56 Dose: 15 ml Documented By: Admin: 07/11/25 00:50 Dose: 15 ml Documented By: Admin: 07/10/25 19:54 Dose: Not Given Documented By: AB Famotidine (Famotidine 20 Mg/2 Ml Vial) 20 mg IV BID JOYCE Propofol (Diprivan) 1,000 mg in 100 mls @ 33 mls/hr IV TITRATE JOYCE; Protocol Last Admin: 07/11/25 05:15 Dose: 30 mcg/kg/min, 19.8 mls/hr Documented By: Titration: 07/11/25 05:15 Dose: Infused Documented By: Titration: 07/11/25 05:00 Dose: 30 mcg/kg/min, 19.8 mls/hr Documented By: Titration: 07/11/25 03:15 Dose: 25 mcg/kg/min, 16.5 mls/hr Documented By: Titration: 07/11/25 02:59 Dose: 30 mcg/kg/min, 19.8 mls/hr Documented By: Titration: 07/11/25 02:27 Dose: 20 mcg/kg/min, 13.2 mls/hr Documented By: Titration: 07/11/25 02:15 Dose: 20 mcg/kg/min, 13.2 mls/hr Documented By: Titration: 07/11/25 02:03 Dose: 10 mcg/kg/min, 6.6 mls/hr Documented By: Titration: 07/11/25 01:43 Dose: 20 mcg/kg/min, 13.2 mls/hr Documented By: Titration: 07/10/25 23:56 Dose: 0 mcg/kg/min, 0 mls/hr Documented By: Admin: 07/10/25 23:38 Dose: 20 mcg/kg/min, 13.2 mls/hr Documented By: Titration: 07/10/25 22:24 Dose: Infused Documented By: Titration: 07/10/25 22:23 Dose: 40 mcg/kg/min, 26.4 mls/hr Documented By: Titration: 07/10/25 20:39 Dose: 40 mcg/kg/min, 26.4 mls/hr Documented By: Titration: 07/10/25 19:30 Dose: 40 mcg/kg/min, 26.4 mls/hr Documented By: Titration: 07/10/25 19:28 Dose: 50 mcg/kg/min, 33 mls/hr Documented By: Titration: 07/10/25 17:54 Dose: 60 mcg/kg/min, 39.6 mls/hr Documented By: Titration: 07/10/25 17:45 Dose: 50 mcg/kg/min, 33 mls/hr Documented By: Titration: 07/10/25 17:36 Dose: 40 mcg/kg/min, 26.4 mls/hr Documented By: Titration: 07/10/25 17:20 Dose: 20 mcg/kg/min, 13.2 mls/hr Documented By: Titration: 07/10/25 17:02 Dose: 10 mcg/kg/min, 6.6 mls/hr Documented By: Admin: 07/10/25 16:54 Dose: 5 mcg/kg/min, 3.3 mls/hr Documented By: KEB Fentanyl 1,000 mcg/ Dextrose 250 mls @ 27.5 mls/hr IV TITRATE PRN; Protocol PRN Reason: Anesthesia Last Titration: 07/11/25 03:36 Dose: 0.75 mcg/kg/hr, 20.625 mls/hr Documented By: Titration: 07/11/25 02:52 Dose: 1 mcg/kg/hr, 27.5 mls/hr Documented By: Admin: 07/11/25 01:59 Dose: 0.5 mcg/kg/hr, 13.75 mls/hr Documented By: Titration: 07/11/25 01:59 Dose: Infused Documented By: Admin: 07/11/25 01:44 Dose: 0.5 mcg/kg/hr, 13.75 mls/hr Documented By: Titration: 07/10/25 23:30 Dose: Infused Documented By: Titration: 07/10/25 22:25 Dose: 2 mcg/kg/hr, 55 mls/hr Documented By: Titration: 07/10/25 19:29 Dose: 2 mcg/kg/hr, 55 mls/hr Documented By: Titration: 07/10/25 19:12 Dose: 3 mcg/kg/hr, 82.5 mls/hr Documented By: Titration: 07/10/25 18:51 Dose: 2 mcg/kg/hr, 55 mls/hr Documented By: Admin: 07/10/25 18:44 Dose: 1 mcg/kg/hr, 27.5 mls/hr Documented By: IVY dexmedeTOMIDine in 0.9 % NaCL (Precedex) 400 mcg in 100 mls @ 5.5 mls/hr IV TITRATE JOYCE; Protocol Last Titration: 07/10/25 23:25 Dose: 0 mcg/kg/hr, 0 mls/hr Documented By: Admin: 07/10/25 19:29 Dose: 0.2 mcg/kg/hr, 5.5 mls/hr Documented By: IVY Sodium Chloride (Normal Saline 0.9%) 1,000 mls @ 100 mls/hr IV CONT JOYCE Last Admin: 07/11/25 03:47 Dose: 100 mls/hr Documented By: Infusion: 07/11/25 03:47 Dose: Infused Documented By: Admin: 07/10/25 23:44 Dose: 100 mls/hr Documented By: RUSS Naloxone HCl (Naloxone 0.4 Mg/Ml Vial) 0.2 mg IV Q2MIN PRN PRN Reason: Opiate Reversal Discontinued Medications Chlorhexidine Gluconate (Chlorhexidine Gluconate 15 Ml Cup) 15 ml PO Q6HR JOYCE Sodium Chloride (Normal Saline 0.9%) 1,000 mls @ 150 mls/hr IV CONT JOYCE Last Admin: 07/10/25 17:07 Dose: 150 mls/hr Documented By: IVY Sodium Chloride (Normal Saline 0.9%) 1,000 mls @ 1,000 mls/hr IV BOLUS ONE Stop: 07/10/25 19:12 Last Infusion: 07/10/25 19:13 Dose: Infused Documented By: Admin: 07/10/25 18:14 Dose: 1,000 mls/hr Documented By: IVY Propofol (Propofol 200 Mg/20 Ml Vial) 100 mg IV NOW ONE Stop: 07/10/25 17:07 Last Admin: 07/10/25 17:06 Dose: 100 mg Documented By: IVY Vital Signs Vital signs: Vital Signs - 8 hr 07/10/25 19:30 07/10/25 19:30 07/10/25 19:35 Temperature 97.0 F L 97.2 F L Pulse Rate 83 81 Respiratory Rate 20 20 Blood Pressure 121/74 Pulse Oximetry 94 94 Oxygen Delivery Method 07/10/25 19:35 07/10/25 19:40 07/10/25 19:40 Temperature 97.2 F L Pulse Rate 80 Respiratory Rate 20 Blood Pressure 123/75 119/73 Pulse Oximetry 95 Oxygen Delivery Method 07/10/25 19:45 07/10/25 19:45 07/10/25 19:50 Temperature 97.3 F L 97.3 F L Pulse Rate 80 80 Respiratory Rate 20 20 Blood Pressure 118/72 Pulse Oximetry 95 95 Oxygen Delivery Method Mechanical Ventilation 07/10/25 19:50 07/10/25 19:55 07/10/25 19:55 Temperature 97.3 F L Pulse Rate 80 Respiratory Rate 20 Blood Pressure 119/75 118/76 Pulse Oximetry 95 Oxygen Delivery Method 07/10/25 20:00 07/10/25 20:00 07/10/25 20:05 Temperature 97.3 F L Pulse Rate 80 Respiratory Rate 20 Blood Pressure 117/74 118/74 Pulse Oximetry 95 Oxygen Delivery Method 07/10/25 20:05 07/10/25 20:10 07/10/25 20:10 Temperature 97.3 F L 97.3 F L Pulse Rate 80 80 Respiratory Rate 20 20 Blood Pressure 118/72 Pulse Oximetry 95 95 Oxygen Delivery Method 07/10/25 20:15 07/10/25 20:15 07/10/25 20:20 Temperature 97.3 F L 97.3 F L Pulse Rate 80 80 Respiratory Rate 20 20 Blood Pressure 118/73 Pulse Oximetry 95 95 Oxygen Delivery Method 07/10/25 20:20 07/10/25 20:25 07/10/25 20:25 Temperature 97.3 F L Pulse Rate 80 Respiratory Rate 20 Blood Pressure 118/73 117/76 Pulse Oximetry 95 Oxygen Delivery Method 07/10/25 20:30 07/10/25 20:30 07/10/25 20:35 Temperature 97.3 F L 97.3 F L Pulse Rate 80 81 Respiratory Rate 20 20 Blood Pressure 118/73 Pulse Oximetry 94 95 Oxygen Delivery Method Mechanical Ventilation 07/10/25 20:35 07/10/25 20:40 07/10/25 20:40 Temperature 97.3 F L Pulse Rate 80 Respiratory Rate 20 Blood Pressure 120/74 120/77 Pulse Oximetry 95 Oxygen Delivery Method 07/10/25 20:45 07/10/25 20:45 07/10/25 20:50 Temperature 97.3 F L 97.3 F L Pulse Rate 81 80 Respiratory Rate 20 20 Blood Pressure 116/73 Pulse Oximetry 95 95 Oxygen Delivery Method 07/10/25 20:50 07/10/25 20:55 07/10/25 20:55 Temperature 97.3 F L Pulse Rate 80 Respiratory Rate 20 Blood Pressure 118/75 119/72 Pulse Oximetry 95 Oxygen Delivery Method 07/10/25 21:00 07/10/25 21:00 07/10/25 21:05 Temperature 97.3 F L 97.3 F L Pulse Rate 81 80 Respiratory Rate 20 20 Blood Pressure 119/73 Pulse Oximetry 95 95 Oxygen Delivery Method 07/10/25 21:05 07/10/25 21:10 07/10/25 21:10 Temperature 97.3 F L Pulse Rate 80 Respiratory Rate 20 Blood Pressure 118/74 116/74 Pulse Oximetry 95 Oxygen Delivery Method 07/10/25 21:15 07/10/25 21:15 07/10/25 21:20 Temperature 97.3 F L 97.3 F L Pulse Rate 80 80 Respiratory Rate 20 20 Blood Pressure 115/74 Pulse Oximetry 95 95 Oxygen Delivery Method 07/10/25 21:20 07/10/25 21:25 07/10/25 21:25 Temperature 97.3 F L Pulse Rate 80 Respiratory Rate 20 Blood Pressure 115/73 115/70 Pulse Oximetry 95 Oxygen Delivery Method 07/10/25 21:30 07/10/25 21:30 07/10/25 21:35 Temperature 97.3 F L 97.3 F L Pulse Rate 80 79 Respiratory Rate 20 20 Blood Pressure 114/70 Pulse Oximetry 95 95 Oxygen Delivery Method 07/10/25 21:35 07/10/25 21:40 07/10/25 21:40 Temperature 97.3 F L Pulse Rate 78 Respiratory Rate 20 Blood Pressure 111/70 110/68 Pulse Oximetry 95 Oxygen Delivery Method 07/10/25 21:45 07/10/25 21:45 07/10/25 21:50 Temperature 97.3 F L Pulse Rate 78 Respiratory Rate 20 Blood Pressure 112/71 108/69 Pulse Oximetry 95 Oxygen Delivery Method 07/10/25 21:50 Temperature 97.5 F L Pulse Rate 77 Respiratory Rate 20 Blood Pressure Pulse Oximetry 95 Oxygen Delivery Method MDM - Overdose <Raquel Christopher, DO - Last Filed: 07/11/25 07:44> Lab Data 07/11/25 03:15 07/11/25 03:15 Labs: Lab Results 07/10/25 07/10/25 07/10/25 Range/Units 16:38 16:41 16:49 WBC 7.5 (4.5-11.0) X10^3/uL RBC 4.20 (4.0-5.2) X10^6/uL Hgb 14.5 (12.0-16.0) g/dL Hct 41.5 (36-46) % MCV 98.8 (80-100) fL MCH 34.4 H (26-34) PG MCHC 34.9 (30-36) % RDW 15.4 H (11.6-14.8) % Plt Count 225 (150-400) X10^3/uL Neut % (Auto) 53.6 (50-75) % Lymph % (Auto) 35.2 (25-40) % [place] % (Auto) 9.6 (3-14) % Eos % (Auto) 1.2 L (2-4) % Baso % (Auto) 0.4 (0-2) % Neut # (Auto) 4000 (1865-8372) /uL Lymph # (Auto) 2600 (5437-3472) /uL [place] # (Auto) 700 (0-900) /uL Eos # (Auto) 100 (0-450) /uL Baso # (Auto) 0 (0-100) /uL PT 11.4 (9.4-12.5) SECONDS INR 1.0 (0.9-1.3) ABG Sample Site Right radial ABG pH 7.36 (7.35-7.45) ABG pCO2 38.2 (35-45) mmHg ABG pO2 108 H (80-100) mmHg ABG HCO3 21 L (23-27) mmol/L ABG Total CO2 21 L (23-27) mmol/L ABG O2 Saturation 98 (95-100) % ABG Base Excess -3.7 L (-2-3) mmol/L Reji Test Positive Respiration Rate 20 O2 Delivery Device Adult ventilator Mode of Support Assist cont ventilat FiO2 % 35.0 % % PEEP or CPAP 5 Sodium 143 (137-145) mmol/L Potassium 4.2 (3.4-5.1) mmol/L Chloride 106 (98-107) mmol/L Carbon Dioxide 25 (22-32) mmol/L BUN 8 (7-17) mg/dL Creatinine 0.85 (0.52-1.04) mg/dL Estimated GFR > 60 (>60) mL/min BUN/Creatinine Ratio 9.4 (6-22) Glucose 115 H (70-99) mg/dL Lactate 2.4 H (0.7-2.1) mmol/L Calcium 8.8 (8.4-10.2) mg/dL Total Bilirubin 0.5 (0.2-1.3) mg/dL AST 27 (14-36) IU/L ALT 16 (<35) IU/L Alkaline Phosphatase 77 (38-126) U/L Troponin I < 0.012 (0.01-0.034) ng/mL Total Protein 7.9 (6.3-8.2) g/dL Albumin 4.5 (3.5-5.0) g/dL Globulin 3.4 (1.7-4.1) g/dL Albumin/Globulin Ratio 1.3 (1.0-2.8) Lipase 66 (23-300) U/L Urine Color Yellow Urine Appearance Clear Urine pH 5.5 (4.5-8.0) Ur Specific [place] <=1.005 (1.000-1.035) Urine Protein Negative (Negative) Urine Glucose (UA) Negative (Negative) g/dL Urine Ketones Negative (NEGATIVE) Urine Occult Blood Trace-intact (Negative) Urine Nitrate Negative (Negative) Urine Bilirubin Negative (NEGATIVE) Urine Urobilinogen 0.2 (0.2) E.U./dL Ur Leukocyte Esterase Negative (NEGATIVE) Urine RBC None seen (0-5/HPF) Urine WBC None seen (0-5/HPF) Ur Squamous Epith Cells None seen (0-5/HPF) Urine Bacteria None seen (None) Vol Urine Centrifuged 10ml (spun) Urine Test Negative (Negative) Salicylates < 1.0 (<20) mg/dL U Opiates 300ng/mL cut Negative (Negative) Ur Oxycodone Screen Positive H (Negative) Urine Methadone Screen Positive H (Negative) Acetaminophen < 10 (10-30) ug/mL Ur Barbiturates Screen Negative (Negative) U Tricyclic Antidepress Positive H (Negative) Ur Phencyclidine Scrn Negative (Negative) Ur Amphetamines Screen Negative (Negative) U Methamphetamines Scrn Positive H (Negative) Ur MDMA Scrn (Ecstasy) Positive H (Negative) U Benzodiazepines Scrn Positive H (Negative) Urine Cocaine Screen Positive H (Negative) U Marijuana (THC) Screen Negative (Negative) Urine Specific [place] (Normal) Ethyl Alcohol 377 H (<10) mg/dL Ur Creatinine (Normal) 07/10/25 07/10/25 Range/Units 16:49 18:30 WBC (4.5-11.0) X10^3/uL RBC (4.0-5.2) X10^6/uL Hgb (12.0-16.0) g/dL Hct (36-46) % MCV (80-100) fL MCH (26-34) PG MCHC (30-36) % RDW (11.6-14.8) % Plt Count (150-400) X10^3/uL Neut % (Auto) (50-75) % Lymph % (Auto) (25-40) % [place] % (Auto) (3-14) % Eos % (Auto) (2-4) % Baso % (Auto) (0-2) % Neut # (Auto) (4065-2582) /uL Lymph # (Auto) (3323-0528) /uL [place] # (Auto) (0-900) /uL Eos # (Auto) (0-450) /uL Baso # (Auto) (0-100) /uL PT (9.4-12.5) SECONDS INR (0.9-1.3) ABG Sample Site ABG pH (7.35-7.45) ABG pCO2 (35-45) mmHg ABG pO2 (80-100) mmHg ABG HCO3 (23-27) mmol/L ABG Total CO2 (23-27) mmol/L ABG O2 Saturation (95-100) % ABG Base Excess (-2-3) mmol/L Reji Test Respiration Rate O2 Delivery Device Mode of Support FiO2 % % PEEP or CPAP Sodium (137-145) mmol/L Potassium (3.4-5.1) mmol/L Chloride (98-107) mmol/L Carbon Dioxide (22-32) mmol/L BUN (7-17) mg/dL Creatinine (0.52-1.04) mg/dL Estimated GFR (>60) mL/min BUN/Creatinine Ratio (6-22) Glucose (70-99) mg/dL Lactate 2.4 H (0.7-2.1) mmol/L Calcium (8.4-10.2) mg/dL Total Bilirubin (0.2-1.3) mg/dL AST (14-36) IU/L ALT (<35) IU/L Alkaline Phosphatase (38-126) U/L Troponin I (0.01-0.034) ng/mL Total Protein (6.3-8.2) g/dL Albumin (3.5-5.0) g/dL Globulin (1.7-4.1) g/dL Albumin/Globulin Ratio (1.0-2.8) Lipase (23-300) U/L Urine Color Urine Appearance Urine pH Normal (4.5-8.0) Ur Specific [place] (1.000-1.035) Urine Protein (Negative) Urine Glucose (UA) (Negative) g/dL Urine Ketones (NEGATIVE) Urine Occult Blood (Negative) Urine Nitrate (Negative) Urine Bilirubin (NEGATIVE) Urine Urobilinogen (0.2) E.U./dL Ur Leukocyte Esterase (NEGATIVE) Urine RBC (0-5/HPF) Urine WBC (0-5/HPF) Ur Squamous Epith Cells (0-5/HPF) Urine Bacteria (None) Vol Urine Centrifuged Urine Test (Negative) Salicylates (<20) mg/dL U Opiates 300ng/mL cut (Negative) Ur Oxycodone Screen (Negative) Urine Methadone Screen (Negative) Acetaminophen (10-30) ug/mL Ur Barbiturates Screen (Negative) U Tricyclic Antidepress (Negative) Ur Phencyclidine Scrn (Negative) Ur Amphetamines Screen (Negative) U Methamphetamines Scrn (Negative) Ur MDMA Scrn (Ecstasy) (Negative) U Benzodiazepines Scrn (Negative) Urine Cocaine Screen (Negative) U Marijuana (THC) Screen (Negative) Urine Specific [place] Normal (Normal) Ethyl Alcohol (<10) mg/dL Ur Creatinine Abnormal A (Normal) Point of Care Testing Glucose POC [address] scan - head: Radiologist's Impression: PROCEDURE: CT HEAD/BRAIN WO CON INDICATIONS: found down TECHNIQUE: Noncontrast 4.5 mm thick angled axial sections acquired from the foramen magnum to the vertex, with coronal and sagittal reformats. For radiation dose reduction, the following was used: automated exposure control, adjustment of mA and/or kV according to patient size. COMPARISON: None. FINDINGS: Image quality: Diagnostic. CSF spaces: Basal cisterns are patent. No extra-axial fluid collections. Ventricles are normal in size and shape. Brain: No midline shift. No intracranial mass effect or hemorrhage. [place]- white matter interface is normal. Skull and face: Calvarium and visualized facial bones are intact, without suspicious lesions. Sinuses: Visualized sinuses and mastoids are clear. Opacification of the nasopharynx and partially visualized superior oropharynx by fluid/debris, IMPRESSION: No acute intracranial pathology. Opacification of the partially visualized nasopharynx, which may be secondary to intubation versus aspiration. Dictated by: Jarad Padilla M.D. on 07/10/2025 at 16:29 Chest x-ray: Radiologist's Impression: PROCEDURE: XR CHEST 1V INDICATIONS: intubation TECHNIQUE: One view of the chest was acquired. COMPARISON: None. FINDINGS: Surgical changes and devices: Endotracheal tube with tip in the mid intrathoracic trachea 2.4 cm above the senthil. Subdiaphragmatic enteric tube with tip overlying the gastric body. Lungs and pleura: Low lung volumes with corresponding bibasilar atelectasis.. No pleural effusions or pneumothorax. Mediastinum: Mediastinal contours appear normal. Heart size is normal. Bones and chest wall: No suspicious bony lesions. Overlying soft tissues appear unremarkable. IMPRESSION: Interval intubation and placement of a subdiaphragmatic enteric tube in appropriate position. Low lung volumes with bibasilar atelectasis. Dictated by: Jarad Padilla M.D. on 07/10/2025 at 16:10 [facility] Narrative Medical decision making narrative: Patient is a 40-year-old female presenting today as a presumed overdose. She has a known substance abuse history. She did not respond to Narcan was intubated by EMS for airway protection She is found to be positive for variety of things including alcohol with a level of 377, oxycodone, methadone, tricyclic antidepressants, methamphetamine MDM benzodiazepine cocaine CBC no leukocytosis no anemia CMP no electrolyte abnormality no RENETTA Lactate is elevated at 2.4 Troponin negative UDS positive for oxycodone methadone tricyclic antidepressants, methamphetamine MDMA benzodiazepine cocaine Alcohol level 377 Tylenol negative salicylates negative Imaging reviewed Head CT negative Chest x-ray ET tube placed Patient presenting today as presumed overdose. Positive for polysubstances intubated for airway protection only. Requiring propofol fentanyl drip. ICU nurse has already been down to the ED for evaluation, ICU bed available. Patient is signed out to Dr. Martini awaiting hospitalist 07/10/25, Elizabeth, Vini. Signout from Dr Christopher. Awaiting call back from night hospitalist for likely admission to ICU, polysubstance ingestions with altered mental status, intubated on ventilator. Hemodynamically stable. Day shift apparently overwhelmed with admissions, in call back from night hospitalist. CT head no acute changes. Chest x-ray showed no aspiration or acute changes. Assumed care. 2129, case discussed with hospitalist Dr. Brooks who accepts patient for admission to ICU <Jason Martini MD - Last Filed: 07/11/25 03:27> Lab Data Labs: Lab Results 07/10/25 07/10/25 07/10/25 Range/Units 16:38 16:41 16:49 WBC 7.5 (4.5-11.0) X10^3/uL RBC 4.20 (4.0-5.2) X10^6/uL Hgb 14.5 (12.0-16.0) g/dL Hct 41.5 (36-46) % MCV 98.8 (80-100) fL MCH 34.4 H (26-34) PG MCHC 34.9 (30-36) % RDW 15.4 H (11.6-14.8) % Plt Count 225 (150-400) X10^3/uL Neut % (Auto) 53.6 (50-75) % Lymph % (Auto) 35.2 (25-40) % [place] % (Auto) 9.6 (3-14) % Eos % (Auto) 1.2 L (2-4) % Baso % (Auto) 0.4 (0-2) % Neut # (Auto) 4000 (2985-1277) /uL Lymph # (Auto) 2600 (2155-4271) /uL [place] # (Auto) 700 (0-900) /uL Eos # (Auto) 100 (0-450) /uL Baso # (Auto) 0 (0-100) /uL PT 11.4 (9.4-12.5) SECONDS INR 1.0 (0.9-1.3) ABG Sample Site Right radial ABG pH 7.36 (7.35-7.45) ABG pCO2 38.2 (35-45) mmHg ABG pO2 108 H (80-100) mmHg ABG HCO3 21 L (23-27) mmol/L ABG Total CO2 21 L (23-27) mmol/L ABG O2 Saturation 98 (95-100) % ABG Base Excess -3.7 L (-2-3) mmol/L Reji Test Positive Respiration Rate 20 O2 Delivery Device Adult ventilator Mode of Support Assist cont ventilat FiO2 % 35.0 % % PEEP or CPAP 5 Sodium 143 (137-145) mmol/L Potassium 4.2 (3.4-5.1) mmol/L Chloride 106 (98-107) mmol/L Carbon Dioxide 25 (22-32) mmol/L BUN 8 (7-17) mg/dL Creatinine 0.85 (0.52-1.04) mg/dL Estimated GFR > 60 (>60) mL/min BUN/Creatinine Ratio 9.4 (6-22) Glucose 115 H (70-99) mg/dL Lactate 2.4 H (0.7-2.1) mmol/L Calcium 8.8 (8.4-10.2) mg/dL Total Bilirubin 0.5 (0.2-1.3) mg/dL AST 27 (14-36) IU/L ALT 16 (<35) IU/L Alkaline Phosphatase 77 (38-126) U/L Troponin I < 0.012 (0.01-0.034) ng/mL Total Protein 7.9 (6.3-8.2) g/dL Albumin 4.5 (3.5-5.0) g/dL Globulin 3.4 (1.7-4.1) g/dL Albumin/Globulin Ratio 1.3 (1.0-2.8) Lipase 66 (23-300) U/L Urine Color Yellow Urine Appearance Clear Urine pH 5.5 (4.5-8.0) Ur Specific [place] <=1.005 (1.000-1.035) Urine Protein Negative (Negative) Urine Glucose (UA) Negative (Negative) g/dL Urine Ketones Negative (NEGATIVE) Urine Occult Blood Trace-intact (Negative) Urine Nitrate Negative (Negative) Urine Bilirubin Negative (NEGATIVE) Urine Urobilinogen 0.2 (0.2) E.U./dL Ur Leukocyte Esterase Negative (NEGATIVE) Urine RBC None seen (0-5/HPF) Urine WBC None seen (0-5/HPF) Ur Squamous Epith Cells None seen (0-5/HPF) Urine Bacteria None seen (None) Vol Urine Centrifuged 10ml (spun) Urine Test Negative (Negative) Salicylates < 1.0 (<20) mg/dL U Opiates 300ng/mL cut Negative (Negative) Ur Oxycodone Screen Positive H (Negative) Urine Methadone Screen Positive H (Negative) Acetaminophen < 10 (10-30) ug/mL Ur Barbiturates Screen Negative (Negative) U Tricyclic Antidepress Positive H (Negative) Ur Phencyclidine Scrn Negative (Negative) Ur Amphetamines Screen Negative (Negative) U Methamphetamines Scrn Positive H (Negative) Ur MDMA Scrn (Ecstasy) Positive H (Negative) U Benzodiazepines Scrn Positive H (Negative) Urine Cocaine Screen Positive H (Negative) U Marijuana (THC) Screen Negative (Negative) Urine Specific [place] (Normal) Ethyl Alcohol 377 H (<10) mg/dL Ur Creatinine (Normal) 07/10/25 07/10/25 Range/Units 16:49 18:30 WBC (4.5-11.0) X10^3/uL RBC (4.0-5.2) X10^6/uL Hgb (12.0-16.0) g/dL Hct (36-46) % MCV (80-100) fL MCH (26-34) PG MCHC (30-36) % RDW (11.6-14.8) % Plt Count (150-400) X10^3/uL Neut % (Auto) (50-75) % Lymph % (Auto) (25-40) % [place] % (Auto) (3-14) % Eos % (Auto) (2-4) % Baso % (Auto) (0-2) % Neut # (Auto) (9682-3553) /uL Lymph # (Auto) (1974-8309) /uL [place] # (Auto) (0-900) /uL Eos # (Auto) (0-450) /uL Baso # (Auto) (0-100) /uL PT (9.4-12.5) SECONDS INR (0.9-1.3) ABG Sample Site ABG pH (7.35-7.45) ABG pCO2 (35-45) mmHg ABG pO2 (80-100) mmHg ABG HCO3 (23-27) mmol/L ABG Total CO2 (23-27) mmol/L ABG O2 Saturation (95-100) % ABG Base Excess (-2-3) mmol/L Reji Test Respiration Rate O2 Delivery Device Mode of Support FiO2 % % PEEP or CPAP Sodium (137-145) mmol/L Potassium (3.4-5.1) mmol/L Chloride (98-107) mmol/L Carbon Dioxide (22-32) mmol/L BUN (7-17) mg/dL Creatinine (0.52-1.04) mg/dL Estimated GFR (>60) mL/min BUN/Creatinine Ratio (6-22) Glucose (70-99) mg/dL Lactate 2.4 H (0.7-2.1) mmol/L Calcium (8.4-10.2) mg/dL Total Bilirubin (0.2-1.3) mg/dL AST (14-36) IU/L ALT (<35) IU/L Alkaline Phosphatase (38-126) U/L Troponin I (0.01-0.034) ng/mL Total Protein (6.3-8.2) g/dL Albumin (3.5-5.0) g/dL Globulin (1.7-4.1) g/dL Albumin/Globulin Ratio (1.0-2.8) Lipase (23-300) U/L Urine Color Urine Appearance Urine pH Normal (4.5-8.0) Ur Specific [place] (1.000-1.035) Urine Protein (Negative) Urine Glucose (UA) (Negative) g/dL Urine Ketones (NEGATIVE) Urine Occult Blood (Negative) Urine Nitrate (Negative) Urine Bilirubin (NEGATIVE) Urine Urobilinogen (0.2) E.U./dL Ur Leukocyte Esterase (NEGATIVE) Urine RBC (0-5/HPF) Urine WBC (0-5/HPF) Ur Squamous Epith Cells (0-5/HPF) Urine Bacteria (None) Vol Urine Centrifuged Urine Test (Negative) Salicylates (<20) mg/dL U Opiates 300ng/mL cut (Negative) Ur Oxycodone Screen (Negative) Urine Methadone Screen (Negative) Acetaminophen (10-30) ug/mL Ur Barbiturates Screen (Negative) U Tricyclic Antidepress (Negative) Ur Phencyclidine Scrn (Negative) Ur Amphetamines Screen (Negative) U Methamphetamines Scrn (Negative) Ur MDMA Scrn (Ecstasy) (Negative) U Benzodiazepines Scrn (Negative) Urine Cocaine Screen (Negative) U Marijuana (THC) Screen (Negative) Urine Specific [place] Normal (Normal) Ethyl Alcohol (<10) mg/dL Ur Creatinine Abnormal A (Normal) Point of Care Testing Glucose POC 127 MDM Narrative Medical decision making narrative: Patient is a 40-year-old female presenting today as a presumed overdose. She has a known substance abuse history. She did not respond to Narcan was intubated by EMS for airway protection She is found to be positive for variety of things including alcohol with a level of 377, oxycodone, methadone, tricyclic antidepressants, methamphetamine MDM benzodiazepine cocaine CBC no leukocytosis no anemia CMP no electrolyte abnormality no RENETTA Lactate is elevated at 2.4 Troponin negative Imaging reviewed Head CT negative Chest x-ray ET tube placed Patient presenting today as presumed overdose. Positive for many substances intubated for airway protection only. Requiring propofol fentanyl drip. ICU nurse has already been down to the ED for evaluation 07/10/25, Elizabeth, Vini. Signout from Dr Christopher. Awaiting call back from night hospitalist for likely admission to ICU, polysubstance ingestions with altered mental status, intubated on ventilator. Hemodynamically stable. Day shift apparently overwhelmed with admissions, in call back from night hospitalist. CT head no acute changes. Chest x-ray showed no aspiration or acute changes. Assumed care. 2129, case discussed with hospitalist Dr. Brooks who accepts patient for admission to ICU Naloxone at Discharge Meets criteria for naloxone at discharge?: Yes (admitted to ICU from ED) Critical Care Time <Jason Martini MD - Last Filed: 07/11/25 03:27> Critical Care Time Critical Care Time: Yes Total Critical Care Time: 35 Attestation: The high probability of a clinically significant, sudden or life threatening deterioration of the [metabolic, neurologic cardiopulmonary] system(s) required my full and direct attention, intervention and personal management. The aggregate critical care time was [35] minutes. This time is in addition to time spent performing reported procedures but includes the following: [x] Data Review and interpretation [x] Patient assessment and monitoring of vital signs [x] Documentation [x] Medication orders and management Discharge Plan Departure Patient Disposition: Admitted As Inpatient Clinical Impression: Drug overdose, Cocaine intoxication, Alcohol intoxication, Respiratory failure Admit Date/Time: 07/10/25 21:52 Admit Provider: Harry Brooks
--- NOTE | 2025-07-10 17:47 | PC.NURSE ---
Urinary Catheter placed by Letha JACKSON
[2025-07-10 17:53] LABS: Ur Specific Gravity Normal (Normal)
[2025-07-10 17:54] LABS: Urine Tetrahydrocannabinol Negative (Negative)
[2025-07-10 17:55] LABS: UR Morphine/Opiate cutoff 300 Negative (Negative); Urine MDMA Positive (Negative); Urine Methamphetamines Positive (Negative)
--- NOTE | 2025-07-10 17:55 | PC.NURSE ---
At 1700 patient noted to be crying with hypertension, it is presumed that though she is paralyzed still from prior meds, she is most likely awake and in need of further sedation. Dr. euceda at bedside, she gave patient a 100mg bolus of propofol at 1705. This EDRN is continuing to titrate up the dose of propofol infusion. At 1756 This EDRN continuing to increase dose of propofol infusion, patient has been moving about in bed, wiggling feet and moving arms since around 1730.
[2025-07-10 17:56] LABS: Urine Tricyclic Antidepressant Positive (Negative)
[2025-07-10 18:05] LABS: Appearance Urine UA CLEAR; Bilirubin Urine UA NEGATIVE (NEGATIVE); Color Urine UA YELLOW; Glucose Urine UA NEGATIVE (Negative); Ketones Urine UA NEGATIVE (NEGATIVE); Leukocyte Esterase Urine UA NEGATIVE (NEGATIVE); Nitrite Urine UA NEGATIVE (Negative); Occult Blood Urine UA TRACE-INTACT (Negative); Protein Urine UA NEGATIVE (Negative); Specific Gravity Urine UA <=1.005 (1.000-1.035); Urobilinogen Urine UA 0.2 E.U./dL (0.2)
[2025-07-10 18:06] LABS: pH Urine UA 5.5 (4.5-8.0)
[2025-07-10] MEDS: SODIUM CHLORIDE 0.9% 1,000 ML 1000 ML IV (18:14)
[2025-07-10 18:20] LABS: Reflexed Lactate in 2 Hours Y
--- NOTE | 2025-07-10 18:34 | PC.NURSE ---
Pharmacy paged, will be coming to make fentanyl drip for patient per NEUROSCIENTIST Salena Wade.
[2025-07-10] MEDS: fentaNYL 1,000 MCG in DEXTROSE 5% IN WATER 230 ML 27.5 MCG IV (18:44)
[2025-07-10 18:51] LABS: Lactate 2HR (Lactic Acid Rflx) 2.4 mmol/L (0.7-2.1)
--- NOTE | 2025-07-10 19:08 | PC.NURSE ---
Poison control was contacted at this time. They recommend monitoring for 8 hours. Can extubate if patient tolerates.
[2025-07-10] MEDS: dexmedeTOMIDine in 0.9 % NaCL 400 MCG/100 ML PLAST..BAG 5.5 MCG IV (19:29)
--- NOTE | 2025-07-10 19:58 | PC.NURSE ---
NG tube in place and in use. 250 ml Gastric contents measured output prior to this nurse taking over care.
--- NOTE | 2025-07-10 20:42 | PC.NURSE ---
Francis is at bedside. Brother Umer came in with him to get update. Advised both (Francis) and Brother (Umer) that point of contact is listed is and Father (Don). Will need to make one a person of contact at this time.
--- NOTE | 2025-07-10 20:46 | PC.NURSE ---
Gave Dad (Gene) a update at bedside. They state that her and her are at this time. But Francis is still legal .
--- NOTE | 2025-07-10 21:23 | PC.NURSE ---
Updated report given to Melissa with [facility]ison [facility]. At this time no further questions.
[2025-07-10] MEDS: SODIUM CHLORIDE 0.9% 1,000 ML 100 ML IV (23:44)
[2025-07-10 23:53] LABS: HCO3 ABG 19 mmol/L (23-27); Oxygen Saturation ABG 96 % (95-100); PCO2 ABG 33.3 mmHg (35-45); PO2 ABG 81 mmHg (80-100); TCO2 ABG 19 mmol/L (23-27)
[2025-07-11] VITALS (8 sets, daily range): BP systolic 85–105; BP diastolic 52–63; PULSE 70–85; RESP 16–43; TEMP 36.2–36.5; O2SAT 91–98
[2025-07-11] MEDS: CHLORHEXIDINE GLUCONATE 15 ML CUP PO ×2 (00:50→05:56)
[2025-07-11] MEDS: fentaNYL 1,000 MCG in DEXTROSE 5% IN WATER 230 ML 13.75 MCG IV ×2 (01:44→01:59)
[2025-07-11 02:32] LABS: MRSA (Nasal) PCR NOT DETECTED (Not Detect)
[2025-07-11] MEDS: SODIUM CHLORIDE 0.9% 1,000 ML 100 ML IV (03:47)
[2025-07-11 04:28] LABS: Add Manual Diff / Slide Review NO; Hematocrit 36.0 % (36-46); Hemoglobin 12.4 g/dL (12.0-16.0); Lymphocytes Absolute Auto 1900 /uL (1100-4500); Mean Corpuscular HGB Conc 34.4 % (30-36); Mean Corpuscular Hemoglobin 34.0 PG (26-34); Mean Corpuscular Volume 98.9 fL (80-100); Platelet Count 210 X10^3/uL (150-400)
[2025-07-11 04:40] LABS: Alanine Aminotransferase 13 IU/L (<35); Albumin 3.6 g/dL (3.5-5.0); Albumin Globulin Ratio 1.2 (1.0-2.8); Alkaline Phosphatase 62 U/L (38-126); Blood Urea Nitrogen 6 mg/dL (7-17); Calcium 7.5 mg/dL (8.4-10.2); Carbon Dioxide 19 mmol/L (22-32); Chloride 116 mmol/L (98-107); Estimated Glomerular Filt Rate > 60 mL/min (>60); Globulin 2.9 g/dL (1.7-4.1); Glucose 101 mg/dL (70-99); HEMOLYSIS < 15 (0-50); Magnesium 1.9 mg/dL (1.6-2.3); Potassium 3.4 mmol/L (3.4-5.1); Sodium 145 mmol/L (137-145); Total Protein 6.5 g/dL (6.3-8.2)
--- NOTE | 2025-07-11 04:54 | PM.HP.1 ---
History of Present Illness History of Present Illness Chief complaint: OD/Intubated Narrative: 40 years old female with polysubstance abuse and alcohol abuse presented to the ER after presumed overdose. Intubated for airway protection on the field. Did not respond to Narcan. Alcohol level 377, UTOX positive for oxycodone, methadone, tricyclic antidepressant, methamphetamine, benzodiazepine, MDMA, cocaine. Laboratory unremarkable except for 2.4. MRSA negative. CT of the head and chest x-ray unremarkable. [facility] Social History Smoking Status: Smoker, status unknown alcohol intake: current Meds Home Medications and Allergies Home Medications ?Medication ?Instructions ?Recorded ?Confirmed ?Type Unobtainable 07/10/25 07/10/25 History Allergies Allergy/AdvReac Type Severity Reaction Status Date / Time No Known Drug Allergies Allergy Verified 07/10/25 16:35 Review of Systems Review of Systems ROS: Yes All systems reviewed with the patient and are negative except as otherwise documented Constitutional Constitutional: Reports as per HPI and Reports system reviewed and no additional complaints, except as documented Eyes Eyes: Reports as per HPI and Reports system reviewed and no additional complaints, except as documented ENT Ears, Nose, Mouth, and Throat: Yes as per HPI and Yes system reviewed and no additional complaints, except as documented Cardiovascular Cardiovascular: Reports system reviewed and no additional complaints, except as documented Respiratory Respiratory: Reports system reviewed and no additional complaints, except as documented Gastrointestinal Gastrointestinal: Reports system reviewed and no additional complaints, except as documented Genitourinary Genitourinary: Reports system reviewed and no additional complaints, except as documented Musculoskeletal Musculoskeletal: Reports system reviewed and no additional complaints, except as documented, Reports abnormal gait and Reports numbness Neurologic Neurologic: Reports system reviewed and no additional complaints, except as documented, Reports abnormal gait, Reports confusion and Reports numbness Psychiatric Psychiatric: Reports system reviewed and no additional complaints, except as documented and Reports confusion Exam Vital Signs (past 8 hours): - 07/10/25 20:55 07/10/25 20:55 07/10/25 21:00 Temperature 97.3 F L 97.3 F L Pulse Rate 80 81 Respiratory Rate 20 20 Blood Pressure 119/72 Pulse Oximetry 95 95 Oxygen Delivery Method Fraction of Inspired Oxygen 07/10/25 21:00 07/10/25 21:05 07/10/25 21:05 Temperature 97.3 F L Pulse Rate 80 Respiratory Rate 20 Blood Pressure 119/73 118/74 Pulse Oximetry 95 Oxygen Delivery Method Fraction of Inspired Oxygen 07/10/25 21:10 07/10/25 21:10 07/10/25 21:15 Temperature 97.3 F L 97.3 F L Pulse Rate 80 80 Respiratory Rate 20 20 Blood Pressure 116/74 Pulse Oximetry 95 95 Oxygen Delivery Method Fraction of Inspired Oxygen 07/10/25 21:15 07/10/25 21:20 07/10/25 21:20 Temperature 97.3 F L Pulse Rate 80 Respiratory Rate 20 Blood Pressure 115/74 115/73 Pulse Oximetry 95 Oxygen Delivery Method Fraction of Inspired Oxygen 07/10/25 21:25 07/10/25 21:25 07/10/25 21:30 Temperature 97.3 F L Pulse Rate 80 Respiratory Rate 20 Blood Pressure 115/70 114/70 Pulse Oximetry 95 Oxygen Delivery Method Fraction of Inspired Oxygen 07/10/25 21:30 07/10/25 21:35 07/10/25 21:35 Temperature 97.3 F L 97.3 F L Pulse Rate 80 79 Respiratory Rate 20 20 Blood Pressure 111/70 Pulse Oximetry 95 95 Oxygen Delivery Method Fraction of Inspired Oxygen 07/10/25 21:40 07/10/25 21:40 07/10/25 21:45 Temperature 97.3 F L Pulse Rate 78 Respiratory Rate 20 Blood Pressure 110/68 112/71 Pulse Oximetry 95 Oxygen Delivery Method Fraction of Inspired Oxygen 07/10/25 21:45 07/10/25 21:50 07/10/25 21:50 Temperature 97.3 F L 97.5 F L Pulse Rate 78 77 Respiratory Rate 20 20 Blood Pressure 108/69 Pulse Oximetry 95 95 Oxygen Delivery Method Fraction of Inspired Oxygen 07/10/25 21:55 07/10/25 21:55 07/10/25 22:00 Temperature 97.5 F L 97.5 F L Pulse Rate 77 78 Respiratory Rate 20 20 Blood Pressure 108/70 Pulse Oximetry 95 95 Oxygen Delivery Method Fraction of Inspired Oxygen 07/10/25 22:00 07/10/25 22:05 07/10/25 22:05 Temperature 97.5 F L Pulse Rate 77 Respiratory Rate 20 Blood Pressure 107/68 107/69 Pulse Oximetry 95 Oxygen Delivery Method Fraction of Inspired Oxygen 07/10/25 22:10 07/10/25 22:10 07/10/25 22:15 Temperature 97.5 F L 97.5 F L Pulse Rate 75 76 Respiratory Rate 20 20 Blood Pressure 102/66 Pulse Oximetry 95 95 Oxygen Delivery Method Fraction of Inspired Oxygen 07/10/25 22:15 07/10/25 22:16 07/10/25 22:20 Temperature 97.3 F L Pulse Rate 69 Respiratory Rate 20 Blood Pressure 107/69 84/54 L 106/68 Pulse Oximetry 93 Oxygen Delivery Method Fraction of Inspired Oxygen 40 07/10/25 22:20 07/10/25 22:25 07/10/25 22:25 Temperature 97.5 F L 97.5 F L Pulse Rate 76 75 Respiratory Rate 20 20 Blood Pressure 102/65 Pulse Oximetry 95 95 Oxygen Delivery Method Mechanical Ventilation Fraction of Inspired Oxygen 07/10/25 22:30 07/10/25 22:30 07/10/25 22:35 Temperature 97.5 F L 97.5 F L Pulse Rate 74 73 Respiratory Rate 20 20 Blood Pressure 102/62 Pulse Oximetry 95 95 Oxygen Delivery Method Fraction of Inspired Oxygen 07/10/25 22:35 07/10/25 22:40 07/10/25 22:40 Temperature 97.5 F L Pulse Rate 73 Respiratory Rate 20 Blood Pressure 104/62 105/65 Pulse Oximetry 95 Oxygen Delivery Method Fraction of Inspired Oxygen 07/10/25 23:16 07/10/25 23:25 07/10/25 23:30 Temperature 97.2 F L 97.5 F L Pulse Rate 71 64 Respiratory Rate 16 20 Blood Pressure 96/55 L 85/52 L Pulse Oximetry 97 95 Oxygen Delivery Method Fraction of Inspired Oxygen 40 07/10/25 23:30 07/11/25 00:16 07/11/25 00:54 Temperature 97.5 F L 97.2 F L 97.2 F L Pulse Rate 63 72 74 Respiratory Rate 20 16 16 Blood Pressure 88/55 L 96/55 L Pulse Oximetry 94 96 95 Oxygen Delivery Method Fraction of Inspired Oxygen 40 40 07/11/25 01:00 07/11/25 02:54 Temperature 97.2 F L Pulse Rate 74 70 Respiratory Rate 16 16 Blood Pressure 96/54 L 85/52 L Pulse Oximetry 95 91 Oxygen Delivery Method Fraction of Inspired Oxygen Fraction of Inspired Oxygen 40 Oxygen Delivery Method Mechanical Ventilation Const General: cooperative, comfortable and well developed Orientation: alert and oriented x3 HENAL Head: normal to inspection, normocephalic and atraumatic Face and sinus: normal facial exam Mouth: oral mucosae normal and moist mucous membranes Throat: posterior oropharynx normal Eyes General: appearance normal, both eyes and all related structures Pupils: PERRL EOM: EOM intact bilaterally Neck Neck: normal visual inspection and full ROM Chest Chest: normal inspection of the chest Resp Effort & Inspection: normal respiratory effort and able to speak in complete sentences Auscultation: clear to auscultation bilaterally Cardio Palpation: normal PMI Rate: regular rate Rhythm: regular rhythm Heart Sounds: S1 normal and S2 normal GI Inspection: normal to inspection Palpation: soft and no hepatosplenomegaly Auscultation: normal bowel sounds Skin General: no rashes or lesions noted Lesions: no lesions Rashes: no rashes Trauma: no lacerations or abrasions Neuro General: patient alert, patient awake, patient oriented x3 and no focal motor deficits Cranial Nerves: CN's II-XI intact bilaterally Cognition: normal cognition Speech: speech normal Gait: normal gait Motor: muscle tone normal throughout Sensory Exam: no sensory deficits noted Extrem General: full ROM and no calf tenderness Psych Appearance: grossly normal Mental Status: mental status grossly normal Speech and Movement: speech and movement normal Objective Labs 07/11/25 03:15 07/11/25 03:15 Labs: Laboratory Results - last 24 hr 07/10/25 07/10/25 07/10/25 16:38 16:41 16:49 WBC 7.5 RBC 4.20 Hgb 14.5 Hct 41.5 MCV 98.8 MCH 34.4 H MCHC 34.9 RDW 15.4 H Plt Count 225 Neut % (Auto) 53.6 Lymph % (Auto) 35.2 [place] % (Auto) 9.6 Eos % (Auto) 1.2 L Baso % (Auto) 0.4 Neut # (Auto) 4000 Lymph # (Auto) 2600 [place] # (Auto) 700 Eos # (Auto) 100 Baso # (Auto) 0 PT 11.4 INR 1.0 ABG Sample Site Right radial ABG pH 7.36 ABG pCO2 38.2 ABG pO2 108 H ABG HCO3 21 L ABG Total CO2 21 L ABG O2 Saturation 98 ABG Base Excess -3.7 L Reji Test Positive Respiration Rate 20 O2 Delivery Device Adult ventilator Mode of Support Assist cont ventilat FiO2 % 35.0 % PEEP or CPAP 5 Sodium 143 Potassium 4.2 Chloride 106 Carbon Dioxide 25 BUN 8 Creatinine 0.85 Estimated GFR > 60 BUN/Creatinine Ratio 9.4 Glucose 115 H POC Whole Bld Glucose Lactate 2.4 H Calcium 8.8 Magnesium Total Bilirubin 0.5 AST 27 ALT 16 Alkaline Phosphatase 77 Troponin I < 0.012 Total Protein 7.9 Albumin 4.5 Globulin 3.4 Albumin/Globulin Ratio 1.3 Lipase 66 Urine Color Yellow Urine Appearance Clear Urine pH 5.5 Ur Specific [place] <=1.005 Urine Protein Negative Urine Glucose (UA) Negative Urine Ketones Negative Urine Occult Blood Trace-intact Urine Nitrate Negative Urine Bilirubin Negative Urine Urobilinogen 0.2 Ur Leukocyte Esterase Negative Urine RBC None seen Urine WBC None seen Ur Squamous Epith Cells None seen Urine Bacteria None seen Vol Urine Centrifuged 10ml (spun) Urine Test Negative Nasal Screen MRSA (PCR) Salicylates < 1.0 U Opiates 300ng/mL cut Negative Ur Oxycodone Screen Positive H Urine Methadone Screen Positive H Acetaminophen < 10 Ur Barbiturates Screen Negative U Tricyclic Antidepress Positive H Ur Phencyclidine Scrn Negative Ur Amphetamines Screen Negative U Methamphetamines Scrn Positive H Ur MDMA Scrn (Ecstasy) Positive H U Benzodiazepines Scrn Positive H Urine Cocaine Screen Positive H U Marijuana (THC) Screen Negative Urine Specific [place] Ethyl Alcohol 377 H Ur Creatinine 07/10/25 07/10/25 07/10/25 16:49 18:30 23:50 WBC RBC Hgb Hct MCV MCH MCHC RDW Plt Count Neut % (Auto) Lymph % (Auto) [place] % (Auto) Eos % (Auto) Baso % (Auto) Neut # (Auto) Lymph # (Auto) [place] # (Auto) Eos # (Auto) Baso # (Auto) PT INR ABG Sample Site ABG pH 7.37 ABG pCO2 33.3 L ABG pO2 81 ABG HCO3 19 L ABG Total CO2 19 L ABG O2 Saturation 96 ABG Base Excess -5.0 L Reji Test Respiration Rate O2 Delivery Device Mode of Support FiO2 % PEEP or CPAP Sodium Potassium Chloride Carbon Dioxide BUN Creatinine Estimated GFR BUN/Creatinine Ratio Glucose POC Whole Bld Glucose Lactate 2.4 H Calcium Magnesium Total Bilirubin AST ALT Alkaline Phosphatase Troponin I Total Protein Albumin Globulin Albumin/Globulin Ratio Lipase Urine Color Urine Appearance Urine pH Normal Ur Specific [place] Urine Protein Urine Glucose (UA) Urine Ketones Urine Occult Blood Urine Nitrate Urine Bilirubin Urine Urobilinogen Ur Leukocyte Esterase Urine RBC Urine WBC Ur Squamous Epith Cells Urine Bacteria Vol Urine Centrifuged Urine Test Nasal Screen MRSA (PCR) Salicylates U Opiates 300ng/mL cut Ur Oxycodone Screen Urine Methadone Screen Acetaminophen Ur Barbiturates Screen U Tricyclic Antidepress Ur Phencyclidine Scrn Ur Amphetamines Screen U Methamphetamines Scrn Ur MDMA Scrn (Ecstasy) U Benzodiazepines Scrn Urine Cocaine Screen U Marijuana (THC) Screen Urine Specific [place] Normal Ethyl Alcohol Ur Creatinine Abnormal A 07/11/25 07/11/25 07/11/25 00:00 00:13 03:15 WBC 4.2 L RBC 3.64 L Hgb 12.4 Hct 36.0 MCV 98.9 MCH 34.0 MCHC 34.4 RDW 15.6 H Plt Count 210 Neut % (Auto) 47.5 L Lymph % (Auto) 44.3 H [place] % (Auto) 6.4 Eos % (Auto) 1.5 L Baso % (Auto) 0.3 Neut # (Auto) 2000 Lymph # (Auto) 1900 [place] # (Auto) 300 Eos # (Auto) 100 Baso # (Auto) 0 PT INR ABG Sample Site ABG pH ABG pCO2 ABG pO2 ABG HCO3 ABG Total CO2 ABG O2 Saturation ABG Base Excess Reji Test Respiration Rate O2 Delivery Device Mode of Support FiO2 % PEEP or CPAP Sodium 145 Potassium 3.4 Chloride 116 H Carbon Dioxide 19 L BUN 6 L Creatinine 0.72 Estimated GFR > 60 BUN/Creatinine Ratio 8.3 Glucose 101 H POC Whole Bld Glucose 96 Lactate Calcium 7.5 L Magnesium 1.9 Total Bilirubin 0.2 AST 23 ALT 13 Alkaline Phosphatase 62 Troponin I Total Protein 6.5 Albumin 3.6 Globulin 2.9 Albumin/Globulin Ratio 1.2 Lipase Urine Color Urine Appearance Urine pH Ur Specific [place] Urine Protein Urine Glucose (UA) Urine Ketones Urine Occult Blood Urine Nitrate Urine Bilirubin Urine Urobilinogen Ur Leukocyte Esterase Urine RBC Urine WBC Ur Squamous Epith Cells Urine Bacteria Vol Urine Centrifuged Urine Test Nasal Screen MRSA (PCR) Not detected Salicylates U Opiates 300ng/mL cut Ur Oxycodone Screen Urine Methadone Screen Acetaminophen Ur Barbiturates Screen U Tricyclic Antidepress Ur Phencyclidine Scrn Ur Amphetamines Screen U Methamphetamines Scrn Ur MDMA Scrn (Ecstasy) U Benzodiazepines Scrn Urine Cocaine Screen U Marijuana (THC) Screen Urine Specific [place] Ethyl Alcohol Ur Creatinine Assessment & Plan Assessment & Plan narrative: Acute respiratory failure with hypoxia due to drug overdose and alcohol intoxication, requiring intubation for airway protection. - Admit for ICU - Continue mechanical ventilation with sedation - Weaning trial in the morning - ABG monitoring -Drug counseling after extubation -Monitor for any withdrawal symptoms I performed this consultation using real-time telehealth tools, including a live video connection between my location and the patient's location. As the provider for this telehealth service, I attest that I introduced myself to the patient, provided my credentials, disclosed my location, and determined that, based on a review of the patients chart and/or a discussion with members of the patient's treatment team, telemedicine via a real-time, two-way, interactive audio and video platform is an appropriate and effective means of providing this service. The patient and I mutually agree that this visit is appropriate for telemedicine as well. Disclaimer Note: To increase efficiency, your provider may have prepared this document using voice recognition technology. In that case, if a word or phrase is confusing, or does not make sense, this is likely due to a recognition error within the program which was not discovered during the provider?s review. If you believe an error has occurred, please notify your provider?s office at your earliest convenience, so we can correct any mistakes. Time-Based Coding :: 50 min spent with patient and on the chart (including review of chart, obtaining history, exam, reviewing outside data, placing orders, documenting exam and treatment plan, and counseling patient) on 07/10/2025. Quality VTE Deep Vein Thrombosis/Pulmonary Embolism Present on Admission: No MIPS - Admit I confirm the patient?s Advance Care Plan is present, Code status is documented, Surrogate decision maker is in patient?s record [If Yes, STOP here]: Yes MIPS - Meds 'Current medications' to include all prescriptions, [id number] products, herbals, cannabis/cannabidiol products, and vitamin/mineral/dietary (nutritional) supplements. I have utilized all available resources to obtain, update, or review the patient?s current medications. [If Yes, STOP here]: Yes
--- NOTE | 2025-07-11 08:24 | PC.NURSE ---
Addendum entered by Norma Donaldson RN 07/11/25 11:04: Patient requested to leave AMA. , Francis was in room and stated she wants to leave now. Advised patient and of possible risks associated with suspected aspiration to include pneumonia, sepsis, etc. Patient agreed to one treatment of IV ABO. Patient completed one round of Zosyn and was adamant about leaving AMA. I advised patient once again of the possible risks associated with her leaving. Patient still stated I have antibiotics at home and I'm not staying in this hospital. Advised Dr. Lopes of patients request to leave AMA. Patients Farrell and IV's removed by HARRISON Carpenter. Patient was able to ambulate to the restroom with no issues. Patient given appropriate refusal to consent to treatment forms and signed. Patient taken by wheelchair to ED enterance and was able to walk to [facility] [place] with no issue. Original Note: Dr. Lopes and Pj (RT) at bedside. Patient able to follow commands appropriately, sedation turned. All VS stable at HR 79, BP 126/75, RR 23, SPO2 100%. Patient extubated to 2L NC at 0750.
[2025-07-11] MEDS: PIPERACILLIN/TAZO 4.5 GM in SODIUM CHLORIDE 0.9% 100 ML IV (09:11)
--- NOTE | 2025-07-11 19:37 | P.DS_ITS ---
History of Present Illness History of Present Illness Chief complaint: OD/Intubated Narrative: Per H&P: 40 years old female with polysubstance abuse and alcohol abuse presented to the ER after presumed overdose. Intubated for airway protection on the field. Did not respond to Narcan. Alcohol level 377, UTOX positive for oxycodone, methadone, tricyclic antidepressant, methamphetamine, benzodiazepine, MDMA, cocaine. Laboratory unremarkable except for 2.4. MRSA negative. CT of the head and chest x-ray unremarkable. Discharge Providers Provider Date of admission: 07/10/25 21:52 Discharge Date: 07/11/25 Consults: 07/10/25 22:19 Consult to Dietitian, Adult Routine Comment: Reason For Exam: Patient on Ventilator and NPO Discharge provider: Silvina Lopes MD Summary Hospital Course Discharge Diagnosis: 1. Acute hypoxic respiratory failure requiring intubation/mechanical ventilation 2. Polysubstance overdose (urine tox screen positive for methamphetamines, MDMA, benzodiazepines, cocaine, tricyclic antidepressant, methadone, oxycodone) 3. Acute Alcohol intoxication with alcohol level of 0.377 4. Acute aspiration 5. Metabolic acidosis Hospital Course: Patient was found down by EMS unresponsive. She was given nasal and IV Narcan with minimal response. She was intubated in the field. She was given ketamine and rocuronium for sedation. Patient's mother did report that patient has a substance use disorder but it is unclear what previous overdoses she has had, if any. She was placed on a propofol infusion, fentanyl infusion, and Precedex infusion. She was subsequently admitted to the intensive care unit. Overnight, she did fairly well. She was more awake on the morning following admission. Spontaneous breathing trial was performed which she passed well. She was suctioned for a moderate amount of thick contreras sputum, concerning for aspiration when she was unresponsive. She was subsequently extubated to nasal cannula O2. She was initially cooperative and understanding why she was in the hospital and rationale for remaining in the hospital for another 24-48 hours. However, later in the morning, her spouse told the RN that the patient wanted to leave. She was upset she was brought to [facility] as she feels that this hospital provides bad care and she prefers [facility]. Despite being advised of the importance to remain hospitalized for the antibiotics, she was receptive only to remain for a single dose of IV Zosyn. Patient was adamant about discharging against medical advice, telling the RN she has antibiotics at home and she refused stay. Patient's Farrell and IV was removed. She subsequently discharged Against Medical Advice. Status at Discharge Cognitive/behavioral status at discharge: at baseline, oriented Overall status at discharge: patient is not back to baseline Exam Vital Signs (past 8 hours): Fraction of Inspired Oxygen 40 Oxygen Delivery Method Nasal Cannula Objective Labs 07/11/25 03:15 07/11/25 03:15 Labs: Laboratory Results - last 24 hr 07/10/25 07/11/25 07/11/25 23:50 00:00 00:13 WBC RBC Hgb Hct MCV MCH MCHC RDW Plt Count Neut % (Auto) Lymph % (Auto) [place] % (Auto) Eos % (Auto) Baso % (Auto) Neut # (Auto) Lymph # (Auto) [place] # (Auto) Eos # (Auto) Baso # (Auto) ABG pH 7.37 ABG pCO2 33.3 L ABG pO2 81 ABG HCO3 19 L ABG Total CO2 19 L ABG O2 Saturation 96 ABG Base Excess -5.0 L Sodium Potassium Chloride Carbon Dioxide BUN Creatinine Estimated GFR BUN/Creatinine Ratio Glucose POC Whole Bld Glucose 96 Calcium Magnesium Total Bilirubin AST ALT Alkaline Phosphatase Total Protein Albumin Globulin Albumin/Globulin Ratio Nasal Screen MRSA (PCR) Not detected 07/11/25 03:15 WBC 4.2 L RBC 3.64 L Hgb 12.4 Hct 36.0 MCV 98.9 MCH 34.0 MCHC 34.4 RDW 15.6 H Plt Count 210 Neut % (Auto) 47.5 L Lymph % (Auto) 44.3 H [place] % (Auto) 6.4 Eos % (Auto) 1.5 L Baso % (Auto) 0.3 Neut # (Auto) 2000 Lymph # (Auto) 1900 [place] # (Auto) 300 Eos # (Auto) 100 Baso # (Auto) 0 ABG pH ABG pCO2 ABG pO2 ABG HCO3 ABG Total CO2 ABG O2 Saturation ABG Base Excess Sodium 145 Potassium 3.4 Chloride 116 H Carbon Dioxide 19 L BUN 6 L Creatinine 0.72 Estimated GFR > 60 BUN/Creatinine Ratio 8.3 Glucose 101 H POC Whole Bld Glucose Calcium 7.5 L Magnesium 1.9 Total Bilirubin 0.2 AST 23 ALT 13 Alkaline Phosphatase 62 Total Protein 6.5 Albumin 3.6 Globulin 2.9 Albumin/Globulin Ratio 1.2 Nasal Screen MRSA (PCR) [facility] Social History Smoking Status: Smoker, status unknown alcohol intake: current Discharge Plan Discharge Plan Patient Disposition: Left Against Medical Advice Discharge orders & Medications Prescriptions: No Action Unobtainable Visit Report/Discharge Packet Instructions: Naloxone for Opiate Overdose - [facility] Stand Alone Forms: Patient Portal/API, Stroke Signs & Symptoms, Naloxone Standing Order [facility] Quality VTE Deep Vein Thrombosis/Pulmonary Embolism Present on Admission: No
--- NOTE | 2025-07-11 19:46 | PM.PN.1 ---
Subjective Subjective Interval history: 40-year-old female with history of polysubstance abuse, class 2 obesity, anxiety on intermittent lorazepam and insomnia on chronic temazepam admitted last night with acute hypoxic respiratory failure requiring intubation/mechanical ventilation for airway protection in the setting of a polysubstance overdose and acute alcohol intoxication. Patient is awake and interactive this morning. She is following commands. She passed a spontaneous breathing trial this morning. Her is at bedside. He states she was found wedged between the toilet and the bathroom vanity. He does not know what she took yesterday. He does not believe this was a suicide attempt. He states she was with her brother, but he does not think her brother knows what she took either. Spouse notes she does have a history of recreation drug use, but he is uncertain what she may have taken. She is anxious to have the ET tube discontinued. Exam Vital Signs (past 8 hours): Fraction of Inspired Oxygen 40 Oxygen Delivery Method Nasal Cannula Narrative Exam Narrative: GEN: Alert, intubated, following commands, shaking her head yes and no appropriately, appears anxious HEENT:NC, Face symmetric, some dry blood noted around her left Dee, ET tube in place CHEST: Respiratory excursions symmetric, coarse but CTAB CV: RRR, no M/R/G ABD: Soft, NT/ND, BT present in all 4 quadrants, body habitus limits exam EXTR: warm, well perfused, no C/C/E SKIN: warm and dry, no rash NEURO: Alert and nonfocal Objective Labs 07/11/25 03:15 07/11/25 03:15 Labs: Laboratory Results - last 24 hr 07/10/25 07/11/25 07/11/25 23:50 00:00 00:13 WBC RBC Hgb Hct MCV MCH MCHC RDW Plt Count Neut % (Auto) Lymph % (Auto) Mccormick % (Auto) Eos % (Auto) Baso % (Auto) Neut # (Auto) Lymph # (Auto) Mccormick # (Auto) Eos # (Auto) Baso # (Auto) ABG pH 7.37 ABG pCO2 33.3 L ABG pO2 81 ABG HCO3 19 L ABG Total CO2 19 L ABG O2 Saturation 96 ABG Base Excess -5.0 L Sodium Potassium Chloride Carbon Dioxide BUN Creatinine Estimated GFR BUN/Creatinine Ratio Glucose POC Whole Bld Glucose 96 Calcium Magnesium Total Bilirubin AST ALT Alkaline Phosphatase Total Protein Albumin Globulin Albumin/Globulin Ratio Nasal Screen MRSA (PCR) Not detected 07/11/25 03:15 WBC 4.2 L RBC 3.64 L Hgb 12.4 Hct 36.0 MCV 98.9 MCH 34.0 MCHC 34.4 RDW 15.6 H Plt Count 210 Neut % (Auto) 47.5 L Lymph % (Auto) 44.3 H Mccormick % (Auto) 6.4 Eos % (Auto) 1.5 L Baso % (Auto) 0.3 Neut # (Auto) 2000 Lymph # (Auto) 1900 Mccormick # (Auto) 300 Eos # (Auto) 100 Baso # (Auto) 0 ABG pH ABG pCO2 ABG pO2 ABG HCO3 ABG Total CO2 ABG O2 Saturation ABG Base Excess Sodium 145 Potassium 3.4 Chloride 116 H Carbon Dioxide 19 L BUN 6 L Creatinine 0.72 Estimated GFR > 60 BUN/Creatinine Ratio 8.3 Glucose 101 H POC Whole Bld Glucose Calcium 7.5 L Magnesium 1.9 Total Bilirubin 0.2 AST 23 ALT 13 Alkaline Phosphatase 62 Total Protein 6.5 Albumin 3.6 Globulin 2.9 Albumin/Globulin Ratio 1.2 Nasal Screen MRSA (PCR) [facility] Social History Smoking Status: Smoker, status unknown alcohol intake: current Assessment & Plan Assessment & Plan narrative: 1. Acute hypoxic respiratory failure Patient successfully passed a spontaneous breathing trial this morning. She has been extubated without difficulty to nasal cannula. Given the purulent appearing sputum that was suctioned out prior to extubation, I have high concern for aspiration when she was unresponsive. I have therefore ordered IV Zosyn. MRSA swab was negative. No vancomycin indicated. 2. Polysubstance overdose Urine tox screen was positive for oxycodone, methadone, tricyclic antidepressants, methamphetamines, MDMA, benzodiazepines, and cocaine. Her notes that her only prescription is temazepam and perhaps lorazepam. He reports she does use recreational drugs but is uncertain exactly what she takes. States she was with her brother at the time of her overdose last night. Does not believe her brother would know what she was taking either. He does not believe she is depressed or suicidal. He notes that their son was in a significant car accident approximately 4 months ago but he has been doing better. He does not believe she has been suicidal. 3. Acute alcohol intoxication Her alcohol level on admission was 0.377. He notes she has not had a history of alcohol withdrawal 4. Metabolic acidosis Mild. Will continue IV fluid hydration until she is taking adequate oral hydration. Code status full Prophylaxis Low Saul score Disposition Intensive care unit Time-Based Coding :: [TOTAL MINUTES] spent with patient and on the chart (including review of chart, obtaining history, exam, reviewing outside data, placing orders, documenting exam and treatment plan, and counseling patient) on [DATE]. Quality VTE Deep Vein Thrombosis/Pulmonary Embolism Present on Admission: No
== END 2025-07-11 10:35 | disposition left against medical advice (07) | DRG 133 ==
LOC: ED 20:16 → AC 21:52 → ICU 22:25
PROVIDERS: Emergency Medicine; Admitting Provider Internal Medicine; Emergency Provider Emergency Medicine; PCP Family Medicine; Referring Provider Emergency Medicine; Visit Provider Internal Medicine
DX: J96.01 Acute respiratory failure with hypoxia (principal); T43.621A Poisoning by amphetamines, accidental (unintentional), initial encounter; E87.20 Acidosis, unspecified; F10.129 Alcohol abuse with intoxication, unspecified; T40.3X1A Poisoning by methadone, accidental (unintentional), initial encounter; T40.2X1A Poisoning by other opioids, accidental (unintentional), initial encounter; T43.011A Poisoning by tricyclic antidepressants, accidental (unintentional), initial encounter; T17.918A Gastric contents in respiratory tract, part unspecified causing other injury, initial encounter; F19.10 Other psychoactive substance abuse, uncomplicated; Y90.8 Blood alcohol level of 240 mg/100 ml or more; W44.8XXA Other foreign body entering into or through a natural orifice, initial encounter; Z53.29 Procedure and treatment not carried out because of patient's decision for other reasons
CPT/HCPCS: 36415; 36600; 70450; 71045; 80053; 80305; 80320; 80329; 81001; 81025; 82805; 82962; 83605; 83690; 83735; 84484; 85025; 85610; 87797; 93005; 94003; 94010; 94799; 96365; 96366; 96368; 99285; 99291; 99292; G0480; J2543; J2704; J3010; J7030; J7050; J7060